=== PATIENT | female | born 1940 | race Caucasian/White ===

== ENCOUNTER → 2020-03-22 15:24 | Outpatient (BNVA) | payer MEDICARE, SELFPAY | PROVIDERS: Family Provider Family Medicine; PCP Family Medicine; Visit Provider Family Medicine | DX: Z13.6 Encounter for screening for cardiovascular disorders (principal); G57.93 Unspecified mononeuropathy of bilateral lower limbs | CPT/HCPCS: 80053; 80061; 82607; 84443; 85025 ==

== ENCOUNTER → 2020-06-13 14:44 | Outpatient (BNVA) | payer MEDICARE, SELFPAY | PROVIDERS: Family Provider Family Medicine; PCP Family Medicine; Visit Provider Family Medicine | DX: R10.2 Pelvic and perineal pain (principal) | CPT/HCPCS: 81000 ==

== ENCOUNTER 2025-06-22 13:41 | Observation (INO) | payer MEDICARE, SELFPAY ==
[2025-06-22] VITALS (7 sets, daily range): BP systolic 103–153; BP diastolic 61–102; PULSE 73–83; RESP 14–18; TEMP 37; O2SAT 96–100; BMI 18.2
--- NOTE | 2025-06-22 13:50 | XR_ITS ---
WS: [id number] Right hand, 3 views, 06/22/2025 Clinical Data: Pain and swelling Comparison: None. Findings: No fractures or dislocations are seen. The soft tissues are unremarkable. There is diffuse demineralization of the bones of the right hand. There is osteoarthritis at the base of the right first CMC joint. There is cystic change at the radial styloid. There is osteoarthritis between the sca phoid and the adjacent carpal bones. XR/XR hand RT min 3V* [id number] Impression: 1. 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 2. 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
--- OUTSIDE RECORDS SUMMARY | 2025-06-22 14:03 | XMS_ITS | Clinical Summary ---
Author Organization [place] Address [address] [place]: [place] [address] Care Team Providers Care Flight Security Specialist Name Role Phone OlimpiaJayden ortiz Primary Care Provider [phone] Allergies No known active allergies Medications alendronate (FOSAMAX) 70 mg tabletIndications :Age-related osteoporosis without current pathological fracture Take 1 Tablet (70 mg) by mouth every 7 days. empty stomach before other meds,with 8oz of water, stay upright 30 min 13 Tablet 3 5 Active diclofenac sodium EC (VOLTAREN) 50 mg Tablet, Delayed Release (E.C.)Indications :Bilateral leg pain Take 1 Tablet (50 mg) by mouth 2 times daily. 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 Right arm weakness 10/26/2008 Encounters Date Type Department Care Team Description 06/14/2025 External Device Data ST[facility] ABSTRACTION Provider, Abstract 05/31/2025 External Device Data [facility] ABSTRACTION Provider, Abstract 05/18/2025 External Device Data [facility] ABSTRACTION Provider, Abstract 05/12/[address] [address] Jayden Vaz DO switch rx; not taking pain away; New Prescription Request 04/27/2025 External Device Data [facility] ABSTRACTION Provider, Abstract 04/27/2025 External Device Data [facility] ABSTRACTION Provider, Abstract 04/27/2025 External Device Data [facility] ABSTRACTION Provider, Abstract 04/26/2025 External Device Data [facility] ABSTRACTION Provider, Abstract 04/06/2025 Results Follow-Up [address] [address] Jayden Vaz DO XR DEXA BONE DENSITY AXIAL 1 OR MORE SITES 04/04/2025 1:35 PM CDT - 04/04/2025 11:59 PM CDT Hospital Encounter [facility] [address] [place] [phone] Jayden Vaz DO Discharge Disposition: Home or Self Care 03/30/2025 External Device Data STL ABSTRACTION Provider, Abstract 03/29/2025 External Device Data [facility] ABSTRACTION Provider, Abstract 03/25/2025 3:20 PM CDT Office Visit [address] [phone] Jayden Vaz DO Encounter for routine adult health examination without abnormal findings (Primary Dx); Inflamed sebaceous cyst; Visit for suture removal; Numbness and tingling of both feet; Bilateral leg pain; Postmenopause; Dyslipidemia; Age-related osteoporosis without current pathological fracture; Protein-calorie malnutrition, mild; Abnormal weight loss 03/24/[address] [address] Jayden Vaz DO Wants Appointment from Last 3 Months Family History Medical History Relation Name Comments COPD Father Caesar Arriaza Melanoma Father Caesar Coronais Skin Cancer Mother Caridad Arriaza Relation Name Status Comments Father Caesar Arriaza Alive Mother Caridad Arriaza Alive Social History Tobacco Use Types Packs/Day Years Used Date Smoking Tobacco: Never Smokeless Tobacco: Never Tobacco Cessation:Counseling Given: Not Answered Alcohol Use Standard Drinks/Week Comments No 0 (1 standard drink = 0.6 oz pur e alcohol) Feeling Safe Answer Date Recorded Are you in a relationship wi th someone who hurts you emotionally and/or physically? No 12/16/2023 Comments No Sex and Gender Information Value Date Recorded Sex Assigned at Not on file Legal Sex Female 5:10 AM CAN DOFFER Gender Identity Not on file Sexual Orientation Not on file Last Filed Vital Signs Vital Sign Reading Time Taken Comments Blood Pressure 134/80 03/25/2025 4:02 PM CDT Pulse 78 03/25/2025 4:02 PM CDT Temperature 36.2 C (97.1 F) 03/25/2025 4:02 PM CDT Respiratory Rate 18 03/25/2025 4:02 PM CDT Oxygen Saturation 99% 03/25/2025 4:02 PM CDT Room Air Inhaled Oxygen Concentration - - Weight 54.8 kg (120 lb 12.8 oz) 03/25/2025 4:02 PM CDT Height 172.7 cm (5' 8 ) 03/25/2025 4:02 PM CDT Body Mass Index 18.37 03/25/2025 4:02 PM CDT Plan of Treatment Upcoming Encounters Date Type Department Care Team (Late st Contact Info) Description 09/28/2025 3:20 PM CAN DOFFER Office Visit [facility] [address] [address] Jayden Vaz DO [address] [phone] Health Maintenance Due Date Last Done Comments DTAP/TDAP/TD VACCINES (1 - Tdap) 1961 PNEUMOCOCCAL VACCINE 50+ YEA RS (1 of 1 - PCV) 02/18/1992 ZOSTER VACCINE (1 of 2) 02/18/1992 RSV VACCINE (60+ or ) (1 - 1-dose 75+ series) 2017 Medicare [place] Prev entative Visit/Annual Wellness Visit 10/13/2024 INFLUENZA VACCINE (#1) 2025 , 12/11/2023, 08/20/2022 OSTEOPOROSIS SCREENING 04/04/2030 04/04/2025 Medical Devices Implanted Type Area Fish Net Stringer Device Identifier Shelf Expiration Date Model / Serial / Lot Log [id number] - Tissue Substitutes & Biologicals - 1 - Vitoss Foam Ba 5ml Implanted:Qty: 1 on 06/30/2009 Biological N/A: Neck ORTHOVITA 12/11/2010 [id number] / / [id number] Verte-Stack Anatomic Peek Implanted:Qty: 3 on 06/30/2009 Cage N/A: Neck [employer] 04/11/2016 [id number] / / PD22 Log [id number] - Clay Trinica Cervical Plating System - 1 - Plate Trinica Select 60mm [id number] Implanted:Qty: 1 on 06/30/2009 Plate N/A: Neck [employer]LAY [employer] 07.23263.00 4 / LOAD # [id number] / Log [id number] - Clay Trinica Cervical Plating System - 1 - Screw Beba Ang Self Drill 4.2x14mm [id number] Implanted:Qty: 6 on 06/30/2009 Screw N/A: Neck zzzzZIMMER-SPIN E 07.88096.00 5 / LOAD # [id number] / Variable Screw Implanted:Qty: 2 on 06/30/2009 Screw N/A: Neck zzzzZIMMER-SPIN E 07.49643.00 2 / / LOAD # [id number] Procedures Procedure Name Priority Date/Time Associated Diagnosis Comments XR DEXA BONE DENSITY AXIAL 1 OR MORE SITES Routine 04/04/2025 2:00 PM CDT Postmenopause [place] REMOVAL OF SUTURES Routine 03/25/2025 3:20 PM CDT Inflamed sebaceous cyst Visit for suture removal from Last 3 Months Results * (ABNORMAL) XR DEXA BONE DENSITY AXIAL 1 OR MORE SITES (04/04/2025 2:00 PM CDT) T-SCORE HIP (LEFT) -4.20(A) -1.0 - 1.0 INTERFACE SYSTEM T-SCORE SPINE -3.10(A) -1.0 - 1.0 INTER FACE SYSTEM Anatomical Region Laterality Modality Digital Radiogra phy, Mammography 04/04/2025 2:01 PM CDT Impressions 04/05/2025 4:19 PM CDT IMPRESSION: 1. Findings consistent with osteoporosis; there is currently high risk for fracture with site of lowest density at the total hip. 2. Age matched Z-score of greater than -2.0 is within expected range for age and does not indicate accelerated bone demineralization. Definitions: T-score > -0.99 = Normal T-score -1.00 to -2.49 = Osteopenia T-score < -2.50 = Osteoporosis Z-score >-2.0 = Normal Z-score <-2.0 = Low bone density for chronologic age RECOMMENDATIONS: Follow up 1 year after starting or changing therapy recommended. NOF guidelines recommend consideration of FDA-approved medical therapies in patients with FRAX determined 10-year probabilities of hip/major osteoporosis-related fractures equal or greater than 3%/20% respectively. Consider assessing fracture risk using the FRAX analysis tool for guidance of clinical management available online at www.shef.ac.uk/FRAX/. Enter Omniture for Select DXA and the Femoral Neck BMD value. Narrative 04/05/2025 4:19 PM CDT Exam: XR DEXA BONE DENSITY AXIAL 1 OR MORE SITES Reason For Exam: See Diagnosis, osteoporosis screening. Diagnosis: Postmenopause Findings: The following absorptiometry data were obtained. The quality of this examination is acceptable with regards to count density, processed images, data display and lack of important artifacts (including but not limited to motion and attenuation artifacts). COMPARISON: None L1-L4 BMD (g/cm2): 0.701 Adult T-score: -3.1 Adult Z-score: Normal Left Femoral Neck BMD (g/cm2): 0.436 Adult T-score: -3.7 Adult Z-score: Normal Left Total Femur BMD (g/cm2): 0.433 Adult T-score: -4.2 Adult Z-score: Normal (PLEASE NOTE: IF BILATERAL FEMUR EVALUATION WAS PERFORMED, ONLY THE SIDE WITH LOWEST T-SCORE IS REPORTED) Procedure Note Ravi Barrientos MD - 04/05/2025 Exam: XR DEXA BONE DENSITY AXIAL 1 OR MORE SITES Reason For Exam: See Diagnosis, osteoporosis screening. Diagnosis: Postmenopause Findings: The following absorptiometry data were obtained. The quality of this examination is acceptable with regards to count density, processed images, data display and lack of important artifacts (including but not limited to motion and attenuation artifacts). COMPARISON: None L1-L4 BMD (g/cm2): 0.701 Adult T-score: -3.1 Adult Z-score: Normal Left Femoral Neck BMD (g/cm2): 0.436 Adult T-score: -3.7 Adult Z-score: Normal Left Total Femur BMD (g/cm2): 0.433 Adult T-score: -4.2 Adult Z-score: Normal (PLEASE NOTE: IF BILATERAL FEMUR EVALUATION WAS PERFORMED, ONLY THE SIDE WITH LOWEST T-SCORE IS REPORTED) IMPRESSION: 1. Findings consistent with osteoporosis; there is currently high risk for fracture with site of lowest density at the total hip. 2. Age matched Z-score of greater than -2.0 is within expected range for age and does not indicate accelerated bone demineralization. Definitions: T-score > -0.99 = Normal T-score -1.00 to -2.49 = Osteopenia T-score < -2.50 = Osteoporosis Z-score >-2.0 = Normal Z-score <-2.0 = Low bone density for chronologic age RECOMMENDATIONS: Follow up 1 year after starting or changing therapy recommended. NOF guidelines recommend consideration of FDA-approved medical therapies in patients with FRAX determined 10-year probabilities of hip/major osteoporosis-related fractures equal or greater than 3%/20% respectively. Consider assessing fracture risk using the FRAX analysis tool for guidance of clinical management available online at www.shef.ac.uk/FRAX/. Enter Omniture for Select DXA and the Femoral Neck BMD value. us Jayden Barbe DO DIAGNOSTIC IMAGING ORDERABLES Final Result * [place] REMOVAL OF SUTURES (03/25/2025 3:20 PM CDT) Narrative [facility] - 03/25/2025 3:20 PM CDT Jayden Vaz DO 03/25/2025 5:11 PM Suture Removal Date/Time: 03/25/2025 3:20 PM Performed by: Jayden Vaz DO Authorized by: Jayden Vaz DO Body area: trunk Location details: back Wound Appearance: clean Sutures Removed: 5 Post-removal: dressing applied Facility: sutures placed in this facility Patient tolerance: patient tolerated the procedure well with no immediate complications Jayden Vaz DO PROCEDURE/MINOR SURGICAL ORDE RABLES Final Result Performing Organization Address City/State/[facility] Co de Phone Number [facility] CLIA# [id number] [address] [address] from Last 3 Months Insurance [facility] Care Teams Flight Security Specialist Relationship Specialty Start Date End Date Jayden Vaz DO [address] [address] PCP - General Family Practice 06/21/22
--- OUTSIDE RECORDS SUMMARY | 2025-06-22 14:03 | XMS_ITS | Encounter Summary ---
Author Organization [facility] Address [address] [place] [address] Care Team Providers Care Various Exceptionalities Teacher Name Role Phone Jayden Vaz DO Primary Care Provider Encounter Details Date Type Department Care Team (Late Contact Info) Description 06/14/2025 External Device Data [facility] ABSTRACTION Provider, Abstract NO ADDRESS ON FILE Social History Tobacco Use Types Packs/Day Years Used Date Smoking Tobacco: Never Smokeless Tobacco: Never Alcohol Use Standard Drinks/Week Comments No 0 (1 standard drink = 0.6 oz pur e alcohol) Feeling Safe Answer Date Recorded Are you in a relationship wi th someone who hurts you emotionally and/or physically? No 12/16/2023 Comments No Sex and Gender Information Value Date Recorded Sex Assigned at Not on file Legal Sex Female 5:10 AM SENIOR SOFTWARE ANALYST Gender Identity Not on file Sexual Orientation Not on file documented as of this encounter Plan of Treatment Upcoming Encounters Date Type Department Care Team (Late Contact Info) Description 09/28/2025 3:20 PM SENIOR SOFTWARE ANALYST Office Visit [facility] [address] [place] [phone] Jayden Vaz DO [address] [place] [phone] documented as of this encounter Visit Diagnoses Not on filedocumented in this encounter Care Teams Various Exceptionalities Teacher Relationship Specialty Start Date End Date Jayden Vaz DO [address] [place] [phone] PCP - General Family Practice 06/21/22 documented as of this encounter
--- OUTSIDE RECORDS SUMMARY | 2025-06-22 14:03 | XMS_ITS | Encounter Summary ---
Author Organization [facility] Address [address] [place] [address] Care Team Providers Care Claims Counsel Name Role Phone Jenn Olsen MD Primary Care Provider [phone]- [phone] Encounter Details Date Type Department Care Team (Latest Contact Info) Description 03/13/2007 [facility] Medicine[address] [address] Sprain Lumbar Region (Primary Dx); Dysuria; Unspecified Myalgia and Myositis; Urinary Tract Infection, Site not Specified Social History Tobacco Use Types Packs/Day Years Used Date Smoking Tobacco: Never Assessed Comments Unknown Sex and Gender Information Value Date Recorded Sex Assigned at Not on file Legal Sex Female 2:55 AM FINANCIAL SYSTEMS MANAGER Gender Identity Not on file Sexual Orientation Not on file documented as of this encounter Plan of Treatment Not on file documented as of this encounter Visit Diagnoses Diagnosis Sprain lumbar region- Primary Sprain of lumbar region Dysuria Myalgia and myositis, unspecified Mylagia and myositis, unspecified Urinary tract infection, site not specified documented in this encounter Care Teams Claims Counsel Relationship Specialty Start Date End Date Jenn Olsen MD PCP - General Family Practice 07/06/10 03/18/14 documented as of this encounter
--- OUTSIDE RECORDS SUMMARY | 2025-06-22 14:03 | XMS_ITS | Encounter Summary ---
Author Organization [facility] Address [address] [place] [address] Care Team Providers Care Dust Mill Operator Name Role Phone Jenn Olsen MD Primary Care Provider [phone]- [phone] Encounter Details Date Type Department Care Team (Latest Contact Info) Description 07/27/2007 Outpatient Historical [facility] Medicine[address] [address] Abrasion Head (Primary Dx) Social History Tobacco Use Types Packs/Day Years Used Date Smoking Tobacco: Never Assessed Comments Unknown Sex and Gender Information Value Date Recorded Sex Assigned at Not on file Legal Sex Female 2:55 AM CHIEF RISK OFFICER Gender Identity Not on file Sexual Orientation Not on file documented as of this encounter Plan of Treatment Not on file documented as of this encounter Visit Diagnoses Diagnosis Face, neck, and scalp, except eye, abrasion or friction burn, without mention of infection- Primary documented in this encounter Care Teams Dust Mill Operator Relationship Specialty Start Date End Date Jenn Olsen MD PCP - General Family Practice 07/06/10 03/18/14 documented as of this encounter
--- OUTSIDE RECORDS SUMMARY | 2025-06-22 14:03 | XMS_ITS | Clinical Summary ---
Author Organization [facility] Address [address] [place] [address] Care Team Providers Care Stock Clerk Name Role Phone Unavailable Primary Care Provider Unavailabl e Allergies No known active allergies Medications No known medications Active Problems Problem Noted Date Diagnosed Date Right arm weakness 10/26/2008 Social History Tobacco Use Types Packs/Day Years Used Date Smoking Tobacco: Never Alcohol Use Standard Drinks/Week Comments No 0 (1 standard drink = 0.6 oz pur e alcohol) Comments No Sex and Gender Information Value Date Recorded Sex Assigned at Not on file Legal Sex Female 2:55 AM LOG CHIPPER OPERATOR Gender Identity Not on file Sexual Orientation Not on file Last Filed Vital Signs Vital Sign Reading Time Taken Comments Blood Pressure 120/84 07/06/2010 11:27 AM CDT Pulse 66 08/18/2009 9:17 AM LOG CHIPPER OPERATOR Temperature 36.4 C (97.5 F) 07/06/2010 11:27 AM CDT Respiratory Rate 12 08/18/2009 9:17 AM LOG CHIPPER OPERATOR Oxygen Saturation 96% 08/18/2009 9:17 AM LOG CHIPPER OPERATOR Inhaled Oxygen Concentration - - Weight 59 kg (130 lb) 07/06/2010 11:27 AM CDT Height 167.6 cm (5' 6 ) 08/18/2009 9:17 AM LOG CHIPPER OPERATOR Body Mass Index 20.98 08/18/2009 9:17 AM LOG CHIPPER OPERATOR Plan of Treatment Health Maintenance Due Date Last Done Comments DTAP/TDAP/TD VACCINES (1 - Tdap) 1961 PNEUMOCOCCAL VACCINE 50+ YEARS (1 of 1 - PCV) 02/17/19 92 ZOSTER VACCINE (1 of 2) 02/18/1992 OSTEOPOROSIS SCREENING 2007 RSV VACCINE (60+ or ) (1 - 1-dose 75+ series) 2017 INFLUENZA VACCINE (#1) 2025 Medical Devices Implanted Type Area Cashier Tube Room Device Identifier Shelf Expiration Date Model / Serial / Lot Log [id number] - Tissue Substitutes & Biologicals - 1 - Vitoss Foam Ba 5ml [id number] Implanted:Qty: 1 on 06/30/2009 at [facility] Biological N/A: Neck ORTHOVITA 12/11/[id number] / / [id number] Verte-Stack Anatomic Peek Implanted:Qty: 3 on 06/30/2009 at [facility] Cage N/A: Neck [employer] 04/11/2016 [id number] / / PD22 Log [id number] - Orville Trinica Cervical Plating System - 1 - Plate Trinica Select 60mm [id number] Implanted:Qty: 1 on 06/30/2009 at [facility] Plate N/A: Neck [employer]VILLE [employer] 07.84723.00 4 / LOAD # [id number] / Log [id number] - Orville Trinica Cervical Plating System - 1 - Screw Beba Ang Self Drill 4.2x14mm [id number] Implanted:Qty: 6 on 06/30/2009 at [facility] Screw N/A: Neck zzzzZIMMER-SPIN E [id number] 5 / LOAD # [id number] / Variable Screw Implanted:Qty: 2 on 06/30/2009 at [facility] Screw N/A: Neck zzzzZIMMER-SPIN E 07.89808.00 2 / / LOAD # [id number] Insurance [employer] [facility] Advance Directives For more information, please contact: [phone] * Full Code (Latest Code Status on File) Date Activated Date Inactivated Comments 06/30/2009 1:26 PM 07/03/2009 2:12 PM * Full Code Date Activated Date Inactivated Comments 06/30/2009 6:56 AM 06/30/2009 1:26 PM * Full Code Date Activated Date Inactivated Comments 06/30/2009 5:35 AM 06/30/2009 6:56 AM
--- OUTSIDE RECORDS SUMMARY | 2025-06-22 14:03 | XMS_ITS | Encounter Summary ---
Author Organization [facility] Address [address] [place] [address] Care Team Providers Care Dope And Fabric Worker Name Role Phone Jenn Olsen MD Primary Care Provider [phone]- [phone] Encounter Details Date Type Department Care Team (Latest Contact Info) Description 07/18/1998 Outpatient Historical [facility] Medicine[address] [address] Thomas Vaz MD [address] [place] [address] Dermatophytosis of the body (Primary Dx) Social History Tobacco Use Types Packs/Day Years Used Date Smoking Tobacco: Never Assessed Comments Unknown Sex and Gender Information Value Date Recorded Sex Assigned at Not on file Legal Sex Female 2:55 AM AEROPHYSICIST Gender Identity Not on file Sexual Orientation Not on file documented as of this encounter Plan of Treatment Not on file documented as of this encounter Visit Diagnoses Diagnosis Dermatophytosis of the body- Primary documented in this encounter Care Teams Dope And Fabric Worker Relationship Specialty Start Date End Date Jenn Olsen MD PCP - General Family Practice 07/06/10 03/18/14 documented as of this encounter
--- OUTSIDE RECORDS SUMMARY | 2025-06-22 14:03 | XMS_ITS | Encounter Summary ---
Author Organization [facility] Address [address] [place] [address] Care Team Providers Care Precision Optics Technician Name Role Phone Jenn Olsen MD Primary Care Provider +1- [phone] Encounter Details Date Type Department Care Team (Latest Contact Info) Description 09/02/2006 Outpatient Historical [facility] Medicine- [address] [place] [phone] Brandon Glaser MD [address] [place] [address] Cellulitis and Abscess of Unspecified Site (Primary Dx); Other Postprocedural Status Social History Tobacco Use Types Packs/Day Years Used Date Smoking Tobacco: Never Assessed Comments Unknown Sex and Gender Information Value Date Recorded Sex Assigned at Not on file Legal Sex Female 2:55 AM IMMIGRATION ASSOCIATE Gender Identity Not on file Sexual Orientation Not on file documented as of this encounter Plan of Treatment Not on file documented as of this encounter Visit Diagnoses Diagnosis Cellulitis and abscess of unspecified site- Primary Other postprocedural status(V45.89) Other postprocedural status documented in this encounter Care Teams Precision Optics Technician Relationship Specialty Start Date End Date Jenn Olsen MD PCP - General Family Practice 07/06/10 03/18/14 documented as of this encounter
[2025-06-22 14:22] LABS: Hematocrit 38.6 % (36-47); Hemoglobin 12.80 g/dL (11.27-16.99); Mean Corpuscular HGB Conc 33.2 g/dL (30-55); Mean Corpuscular Hemoglobin 32.2 pg (27-33); Mean Corpuscular Volume 97.0 fl (85-98); Nucleated Red Blood Cells % 0 %; Platelet Count 166 10^3/cmm (157-399); Red Blood Count 3.98 10^6/uL (3.85-5.65); White Blood Count 14.81 10^3/uL (3.29-11.43)
[2025-06-22 14:41] LABS: Alanine Aminotransferase 16 U/L (0-33); Albumin Level 3.5 g/dL (3.5-5.2); Alkaline Phosphatase 141 U/L (35-105); Anion Gap 18.3 (5-19); Aspartate Amino Transferase 36 U/L (0-32); Blood Urea Nitrogen 21 mg/dL (8-23); Calcium 9.3 mg/dL (8.5-10.5); Carbon Dioxide 20 mmol/L (22-29); Chloride 94 mmol/L (98-107); Creatinine Clr Calc Pharmacy 36.7733; Globulin 3.5 g/dL (1.3-4.6); Glucose 135 mg/dL (65-115); Osmolality Calculated 271 mOsm/kg (285-295); Potassium 4.3 mmol/L (3.5-5.1); Sodium 128 mmol/L (136-145); Total Protein 7.0 g/dL (6.6-8.7)
--- NOTE | 2025-06-22 14:51 | CTR_ITS ---
PROCEDURE INFORMATION: Exam: CT Head Without Contrast Exam date and time: 06/22/2025 3:22 PM Age: 85 years old Clinical indication: Weakness, extremity; Bilateral; Additional info: Unable to walk leg weakness TECHNIQUE: Imaging protocol: Computed tomography of the head without contrast. Radiation optimization: All CT scans at this facility use at least one of these dose optimization techniques: automated exposure control; mA and/or kV adjustment per patient size (includes targeted exams where dose is matched to clinical indication); or iterative reconstruction. COMPARISON: No relevant prior studies available. RADIATION DOSE METRICS: Total DLP (mGy-cm): 1182.58 FINDINGS: Brain: Brain is developmentally normal. Minimal parenchymal volume loss is seen commensurate with age. No intracranial hemorrhage, mass lesion, ischemic change, or abnormal calcification is demonstrated. Cerebral ventricles: No ventriculomegaly. Paranasal sinuses: Visualized sinuses are unremarkable. No fluid levels. Mastoid air cells: Visualized mastoid air cells are well aerated. Orbital cavities: Orbits show prior cataract surgery but are otherwise unremarkable. Bones: There is no acute fracture, lytic, or blastic lesion. Calcification of the cruciform and alar ligaments is suggested at the craniocervical junction. No craniocervical stenosis is apparent. Soft tissues: Unremarkable. CT/CT head wo con* [id number] IMPRESSION: Age-related parenchymal volume loss without evidence of acute intracranial pathology.
--- NOTE | 2025-06-22 14:51 | CTR_ITS ---
PROCEDURE INFORMATION: Exam: CT Cervical Spine Without Contrast Exam date and time: 06/22/2025 3:22 PM Age: 85 years old Clinical indication: Weakness; Prior surgery; Surgery date: 6+ months; Surgery type: C-spine; Additional info: Legweakness, HX cervical stenosis TECHNIQUE: Imaging protocol: Computed tomography of the cervical spine without contrast. Radiation optimization: All CT scans at this facility use at least one of these dose optimization techniques: automated exposure control; mA and/or kV adjustment per patient size (includes targeted exams where dose is matched to clinical indication); or iterative reconstruction. COMPARISON: CT head wo con* [id number] 06/22/2025 3:22 PM RADIATION DOSE METRICS: Total DLP (mGy-cm): 148.6 FINDINGS: The spine is imaged from upper clivus through T4. Solid interbody fusion from C4 through C7 is demonstrated with a residual ventral stabilization plate. There is a proximally 3.5 mm of C3-C4 degenerative retrolisthesis and 4.1 mm of C7-T1 degenerative anterolisthesis. There is no acute fracture, lytic, or blastic lesion. Discogenic sclerosis bordering the C3-C4 level. Visible portions of the posterior fossa appear normal. There is no indication of prevertebral soft tissue swelling or mass lesion. Bilateral carotid bifurcation atheromatous calcifications are noted without significant stenosis. A coarse calcification is seen within the left thyroid. An anterior left, low-attenuation 10 mm thyroid nodule is evident. An 11 low-attenuation right thyroid nodule is also noted. Cervical soft tissue mass or lymphadenopathy is present. Craniocervical junction, C1-C2: There is narrowing of the dens C1 articulation with hypertrophic arthropathy along the superior margin of the arch of C1. Capsular hypertrophy with capsular calcification is also seen at the dens C1 articulation with calcification of the cruciform and possibly the alar ligaments. No craniocervical instability is suggested. Thecal sac diameter midline measures 18.8 mm in spite of the capsular hypertrophy. No craniocervical stenosis is evident. C2-C3: Mild disc space narrowing is present. There is a partially calcified central disc bulge or minor protrusion without visible cord or root compromise. Asymmetric left facet sclerosis is seen with subcortical cystic changes. There is no foraminal stenosis or visible nerve root impingement. C3-C4: Severe disc space narrowing is seen with mild discogenic sclerosis and hypertrophic endplate changes. A central disc osteophyte complex is seen, narrowing the thecal sac AP diameter to approximately 6.1 mm and likely resulting in cord impingement. Uncovertebral hypertrophy and endplate hypertrophy is seen causing both foramina root entry zone and foraminal stenosis with probable bilateral C4 root compromise. C4-C5 through C6-C7: Postop changes are seen without evidence of hardware failure or operative complication. Bilateral C6 and C7 bony foraminal stenosis is seen due to residual uncovertebral hypertrophy potentially causing bilateral C6 and C7 root impingement. Clinical correlation is needed. C7-T1: There is moderate to severe disc space narrowing with vacuum disc phenomenon. Severe facet arthropathy allows facet subluxation in the subsequent degenerative anterolisthesis. The bony neural foramina appear to be adequately patent. Midline thecal sac diameter measures 9.1 mm. No neural impingement is suspected. T1-2: A shallow partially calcified disc protrusion is evident without visible cord contact. Mild posterior element hypertrophy is also seen. The neural foramina are patent. No nerve root compromise is suspected. T2-3, T3-4: Normal with the exception of left T2-3 mild bony foraminal stenosis due to facet hypertrophy. No neural impingement is suspected. CT/CT cervical spin wo con* [id number] IMPRESSION: 1. Multilevel cervical spondylosis as detailed above with potentially significant central canal stenosis at C3-C4 where a disc osteophyte complex narrows the thecal sac to 6.1 mm and likely results in some cord compromise. 2. Additional neural impingement with hypertrophic endplate changes uncovertebral spurring causing potential bilateral C4 root compromise, and bony foraminal stenosis potentially affecting the bilateral C6 and C7 nerve roots. 3. Solid interbody fusion from C4 through C7 4. Facet arthropathy resulting in 4.1 mm of degenerative anterolisthesis at C7-T1. Lateral flexion and extension views could be obtained to assess for instability at this level if clinically indicated. 5. 10 mm left and 11 mm right thyroid low-attenuation nodules. No follow-up is recommended. COMMENTS: Consistent with the [employer]'s Incidental Findings Committee white paper (J Am Jamie Radiol 2015): In patients aged 35 years and older with an incidental thyroid nodule equal to or greater than 1.[address], MRI or extrathyroidal US, further evaluation with dedicated thyroid US is recommended for patients with normal life expectancy and without comorbidities. For smaller nodules without suspicious features, no further evaluation or follow up is recommended.
--- NOTE | 2025-06-22 14:51 | CTR_ITS ---
PROCEDURE INFORMATION: Exam: CT Lumbar Spine Without Contrast Exam date and time: 06/22/2025 3:28 PM Age: 85 years old Clinical indication: Weakness; Additional info: Leg weakness. C/O bilateral leg pain and weakness for several days. PT states that she has been forcing herself to get up with her walker when needed. PT reports redness and swelling to the right hand for the last couple of days as well. TECHNIQUE: Imaging protocol: Computed tomography of the lumbar spine without contrast. Radiation optimization: All CT scans at this facility use at least one of these dose optimization techniques: automated exposure control; mA and/or kV adjustment per patient size (includes targeted exams where dose is matched to clinical indication); or iterative reconstruction. COMPARISON: No relevant prior studies available. RADIATION DOSE METRICS: Total DLP (mGy-cm): 302.41 FINDINGS: Bones/joints: Multilevel degenerative disc disease. Grade 1 anterolisthesis of L4 over L5. L1-L2: Disc bulge. No spinal canal stenosis. Severe left neural foraminal narrowing. L2-L3: Disc bulge. Bilateral facet and ligamentum flavum hypertrophy. No spinal canal stenosis. Severe left and moderate right neural foraminal narrowing. L3-L4: Disc bulge. Bilateral facet and ligamentum flavum hypertrophy. Mild to moderate spinal canal stenosis. Severe bilateral neural foraminal narrowing. L4-L5: Disc bulge. Bilateral facet and ligamentum flavum hypertrophy. Moderate spinal canal stenosis. Severe bilateral neural foraminal narrowing. L5-S1: Disc bulge. Bilateral facet and ligamentum flavum hypertrophy. Moderate spinal canal stenosis. Severe bilateral neural foraminal narrowing. Soft tissues: Unremarkable. Other findings: Motion artifact degrades the images. CT/CT lumbar spine wo con* [id number] IMPRESSION: No acute lumbar spine fracture. Multilevel degenerative disc disease with neural foraminal narrowing. Severe left neural foraminal narrowing at L1-L2, severe left and moderate right L2-L3, severe bilateral L3-L4, L4-L5 and L5-S1. Mild to moderate spinal canal stenosis at L3-L4, moderate at L4-L5 and L5-S1.
--- NOTE | 2025-06-22 15:51 | W.ED.WEAKNES ---
HPI - Weakness General: Chief complaint: Weakness Stated complaint: Can't walk painfull to stand R hand was swollen Time Seen by Provider: 06/22/25 14:22 History of Present Illness: 85-year-old female presents emergency room complaining of history of spinal stenosis. She states she cannot walk some progressive weakness for the last couple of days. She has been told she has supple spinal and lumbar stenosis. She has not had any fecal incontinence or urinary retention. No falls or injury. She also has pain radiating to her right hand. No trauma to the right hand denies chest pain or shortness of breath Associated symptoms: Denies chest pain, chills, dysuria or fever(s) Related Data Home Medications ?Medication ?Instructions ?Recorded ?Confirmed acetaminophen 500 mg tablet 500 mg PO Q6H PRN Pain 06/22/25 06/22/25 alendronate 70 mg tablet 70 mg PO Q7D 06/22/25 06/22/25 etodolac 400 mg tablet 400 mg PO BID 06/22/25 06/22/25 Previous Rx's ?Medication ?Instructions ?Recorded insulin syringe,safety needle 1 mL #12 ea 04/21/20 29 gauge x 1/2 Allergies Allergy/AdvReac Type Severity Reaction Status Date / Time No Known Allergies Allergy Verified 06/22/25 13:56 Review of Systems Const: Denies: fever(s) or chills Card: Denies: chest pain Resp: Denies: dyspnea GI: Denies: abdominal pain : Denies: dysuria, urinary frequency or urinary urgency Musc: Denies: neck pain or back pain Skin/Breast: Denies: rash PFSH ED PFSH: Surgical History History of neck surgery History of facelift Social History Smoking and tobacco/nicotine status: never used tobacco/nicotine Alcohol intake: never Substance/Drug Use: never Physical Exam Const: GENERAL APPEARANCE: cooperative ORIENTATION/CONSCIOUSNESS: Yes awake, Yes oriented to person, Yes oriented to place and Yes oriented to time HENMT: COMMON NORMALS: normocephalic, atraumatic and hearing grossly normal bilaterally HEAD & SCALP: normocephalic and atraumatic Resp: COMMON NORMALS: normal respiratory effort, No retractions, No use of accessory muscles and clear to auscultation bilaterally AUSCULTATION: clear to auscultation bilaterally Cardio: COMMON NORMALS: regular rate, regular rhythm and No murmurs present (Cardio) RATE: regular rate RHYTHM: regular rhythm GI: COMMON NORMALS: Soft to palpation and No hepatosplenomegaly present AUSCULTATION: Yes normoactive bowel sounds PALPATION: Yes Soft to palpation, No Tenderness to palpation present (GI), No Guarding due to palpation present (GI) and Yes No hepatosplenomegaly present Extremity: COMMON NORMALS: normal to inspection, capillary refill normal, no clubbing, cyanosis or edema, no calf tenderness and no pedal edema OTHER: Extreme weakness in lower extremities difficult time raising leg up off the bed bilaterally decreased sensation lower extremities particularly in the right lower leg. Upgoing Babinski on the left. Nonresponsive to Babinski testing on the right. Decreased strength in the right arm compared to the left sensation in the upper extremities normal. Vascularly intact in both upper and lower extremities Neuro: SENSORIUM/ORIENTATION: Yes oriented to person, Yes oriented to place and Yes oriented to time Skin: COMMON NORMALS: no rashes or lesions noted GENERAL SKIN EXAM: no rashes or lesions noted Course Vital Signs: Vital signs: Vital Signs Temperature 98.6 F 06/22/25 13:49 Pulse Rate 76 06/23/25 06:30 Respiratory Rate 14 06/23/25 03:01 Blood Pressure 129/76 06/23/25 06:30 Pulse Oximetry 97 06/23/25 06:30 Oxygen Delivery Me thod Room Air 06/23/25 06:00 MDM - Weakness Medical Decision Making Patient has significant cervical and lumbar stenosis concerned about her cervical stenosis appears critical and given her symptoms of progressive loss of function of her lower extremities over short period of time she will need an MRI and neurosurgical consultation. Dr. Plascencia is not on-call today and MRI is not available at this hour. Will transfer. Patient is arranged for transfer to [facility] in [place] however we have not yet received a bed assignment. When I came back on shift patient is still here I contacted Dr. Plascencia who is now available and willing to see the patient. MRI is also now available. Discussed with hospitalist. Will place on observation MRI of the cervical and lumbar spine and consult with Dr. Plascencia. Discussed Dr. tripp and he will see the patient on the floor. Medical Records I reviewed the patient's medical records. Lab Data I reviewed the patient's lab results. 06/22/25 14:17 06/22/25 14:17 Radiology Impressions Hand X-Ray 06/22/25 13:50 Impression: 1. 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 2. 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 Cervical Spine CT 06/22/25 14:51 IMPRESSION: 1. Multilevel cervical spondylosis as detailed above with potentially significant central canal stenosis at C3-C4 where a disc osteophyte complex narrows the thecal sac to 6.1 mm and likely results in some cord compromise. 2. Additional neural impingement with hypertrophic endplate changes uncovertebral spurring causing potential bilateral C4 root compromise, and bony foraminal stenosis potentially affecting the bilateral C6 and C7 nerve roots. 3. Solid interbody fusion from C4 through C7 4. Facet arthropathy resulting in 4.1 mm of degenerative anterolisthesis at C7-T1. Lateral flexion and extension views could be obtained to assess for instability at this level if clinically indicated. 5. 10 mm left and 11 mm right thyroid low-attenuation nodules. No follow-up is recommended. COMMENTS: Consistent with the [employer]'s Incidental Findings Committee white paper (J Am Jamie Radiol 2015): In patients aged 35 years and older with an incidental thyroid nodule equal to or greater than 1.[address], MRI or extrathyroidal US, further evaluation with dedicated thyroid US is recommended for patients with normal life expectancy and without comorbidities. For smaller nodules without suspicious features, no further evaluation or follow up is recommended. Head CT 06/22/25 14:51 IMPRESSION: Age-related parenchymal volume loss without evidence of acute intracranial pathology. Lumbar Spine CT 06/22/25 14:51 IMPRESSION: No acute lumbar spine fracture. Multilevel degenerative disc disease with neural foraminal narrowing. Severe left neural foraminal narrowing at L1-L2, severe left and moderate right L2-L3, severe bilateral L3-L4, L4-L5 and L5-S1. Mild to moderate spinal canal stenosis at L3-L4, moderate at L4-L5 and L5-S1. Laboratory Results WBC 14.81 10^3/uL (3.29-11.43) H 06/22/25 14:17 RBC 3.98 10^6/uL (3.85-5.65) 06/22/25 14:17 Hgb 12.80 g/dL (11.27-16.99) 06/22/25 14:17 Hct 38.6 % (36-47) 06/22/25 14:17 MCV 97.0 fl (85-98) 06/22/25 14:17 MCH 32.2 pg (27-33) 06/22/25 14:17 MCHC 33.2 g/dL (30-55) 06/22/25 14:17 RDW 12.6 % (12.1-15.1) 06/22/25 14:17 Plt Count 166 10^3/cmm (157-399) 06/22/25 14:17 MPV 9.7 fL (7.4-10.4) 06/22/25 14:17 Neut % (Auto) 86.2 % 06/22/25 14:17 Lymph % (Auto) 2.8 % 06/22/25 14:17 [place] % (Auto) 10.2 % 06/22/25 14:17 Eos % (Auto) 0.0 % 06/22/25 14:17 Baso % (Auto) 0.2 % 06/22/25 14:17 Neut # (Auto) 12.76 10^3/uL (1.8-7.7) H 06/22/25 14:17 Lymph # (Auto) 0.4 10^3/uL (0.8-4.8) L 06/22/25 14:17 [place] # (Auto) 1.5 10^3/uL (0.2-0.9) H 06/22/25 14:17 Eos # (Auto) 0.0 10^3/uL (0.0-0.8) 06/22/25 14:17 Baso # (Auto) 0.0 10^3/uL (0.0-0.1) 06/22/25 14:17 Nucleated RBC % (auto) 0 % 06/22/25 14:17 Nucleated RBCs # 0.0 /100WBC 06/22/25 14:17 Sodium 128 mmol/L (136-145) L 06/22/25 14:17 Potassium 4.3 mmol/L (3.5-5.1) 06/22/25 14:17 Chloride 94 mmol/L (98-107) L 06/22/25 14:17 Carbon Dioxide 20 mmol/L (22-29) L 06/22/25 14:17 Anion Gap 18.3 (5-19) 06/22/25 14:17 BUN 21 mg/dL (8-23) 06/22/25 14:17 Creatinine 1.1 mg/dL (0.5-0.9) H 06/22/25 14:17 GFR Calculation Not Reportable 06/22/25 14:17 Glucose 135 mg/dL (65-115) H 06/22/25 14:17 Calculated Osmolality 271 mOsm/kg (285-295) L 06/22/25 14:17 Calcium 9.3 mg/dL (8.5-10.5) 06/22/25 14:17 Total Bilirubin 1.4 mg/dL (0.15-1.2) H 06/22/25 14:17 AST 36 U/L (0-32) H 06/22/25 14:17 ALT 16 U/L (0-33) 06/22/25 14:17 Alkaline Phosphatase 141 U/L (35-105) H 06/22/25 14:17 Total Protein 7.0 g/dL (6.6-8.7) 06/22/25 14:17 Albumin 3.5 g/dL (3.5-5.2) 06/22/25 14:17 Globulin 3.5 g/dL (1.3-4.6) 06/22/25 14:17 All radiology interpretation(s) finalized by discharge Discharge Plan Discharge Patient Disposition: Placed in Observation Clinical Impression: Cervical spinal stenosis, Unable to walk Coding Level of Care Code 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
[2025-06-22] MEDS: HYDROmorphone 0.5 MG/0.5 ML INJ 1 MG IVP ×2 (19:23→23:36)
[2025-06-23] VITALS (32 sets, daily range): BP systolic 93–136; BP diastolic 56–84; PULSE 68–109; RESP 14–18; TEMP 36.8–37.2; O2SAT 93–99; BMI 18.6
[2025-06-23] MEDS: HYDROmorphone 0.5 MG/0.5 ML INJ 1 MG IVP (08:30)
--- NOTE | 2025-06-23 09:02 | P.HP_ITS ---
Providers/Chief Complaint 2 Primary Care Provider: Jayden Vaz DO Chief Complaint: Can't walk painfull to stand R hand was swollen History of Present Illness Maria Luz Weems is a 85 year old woman with a history of prior neck surgery presenting with several days of progressive weakness and difficulty getting up and walking. Reports bilateral leg pain described as painful in most of the legs, with pain shooting down the backs of both legs. States she cannot walk and has struggled to get up even with use of a walker for a couple of days prior to arrival. Also notes her arms feel weak. Denies urinary or fecal incontinence. Reports right hand swelling over the past couple of days that has resolved, with some persistent redness (erythema). Describes a recent acute illness just before the weakness began, characterized by feeling very sick with severe chills and abdominal discomfort; denies diarrhea and is unsure about fever. Denies chest pain, shortness of breath, orthopnea, or leg swelling. Reports long-standing numbness in the feet (states she has had neuropathy for a long time). Denies falls. Had an episode of feeling unwell and with some nausea for about a week prior to current symptoms. States she was exercising and walking prior to this episode without major issues. In the emergency department, she received pain medication that improved comfort. Lives with her niece, who assists her. Review of Systems 2 Const: Reports: fatigue and other (Weakness, more pronounced and suddenly wore in legs. BL arm weakness chroni); Denies: fever(s), chills, body aches or malaise ENMT: Denies: throat pain Card: Denies: chest pain, edema, pre-syncope or dyspnea on exertion Resp: Denies: dyspnea, productive cough, change in phlegm color or hemoptysis GI: Denies: abdominal pain, nausea, vomiting, diarrhea, constipation, hematochezia or melena : Denies: flank pain, urinary frequency or hematuria Musc: Denies: back pain, joint swelling or joint redness Skin/Breast: Reports: other (Recent transient R hand swelling, redness); Denies: rash or new lesions Neuro: Denies: headache(s) or confusion Medications/Allergies Home Medications ?Medication ?Instructions ?Recorded ?Confirmed ?Last Taken ?Type insulin syringe,safety needle 1 mL #12 ea 04/21/2008/06 Unknown Rx 29 gauge x 1/2 acetaminophen 500 mg tablet 500 mg PO Q6H PRN Pain 08/0606/22/25 06/22/25 History alendronate 70 mg tablet 70 mg PO Q7D 06/22/2506/13/25 History etodolac 400 mg tablet 400 mg PO BID 06/22/2506/22 Unknown History Allergies Allergy/AdvReac Type Severity Reaction Status Date / Time No Known Allergies Allergy Verified 06/22/25 13:56 PFSH Acute 2 PFSH: Surgical History History of neck surgery History of facelift Social History Smoking and tobacco/nicotine status: never used tobacco/nicotine Alcohol intake: never Substance/Drug Use: never Lives independently: No Household members: family Vitals/I&O/Wt Last Vital Signs Temp 98.6 F 06/22/25 13:49 Pulse 76 06/23/25 06:30 Resp 14 06/23/25 03:01 BP 129/76 06/23/25 06:30 Pulse Ox 97 06/23/25 06:30 O2 Del Method Room Air 06/23/25 06:00 Weight last 48 hrs Weight 54.431 kg Physical Exam 2 Const: COMMON NORMALS: patient oriented x3 and alert GENERAL APPEARANCE: c ooperative ORIENTATION/CONSCIOUSNESS: Yes awake HENMT: COMMON NORMALS: oropharynx normal Neck/C-Spine: COMMON NORMALS: no JVD Resp: COMMON NORMALS: normal respiratory effort and clear to auscultation bilaterally AUSCULTATION: clear to auscultation bilaterally Cardio: COMMON NORMALS: no JVD, regular rhythm, S1 normal heart sound present, S2 normal heart sound present and No murmurs present (Cardio) RHYTHM: regular rhythm HEART SOUNDS: S1 normal heart sound present and S2 normal heart sound present GI: COMMON NORMALS: Normal to inspection, nondistended, normoactive bowel sounds present, Soft to palpation and non-tender PALPATION: Yes Soft to palpation Extremity: COMMON NORMALS: no joint enlargement and no pedal edema N ARRATIVE EXTREMITY EXAM: Minimal induration without notable redness or swelling of right hand. Neuro: OTHER: Mild weakness of upper extremities. Moderate-severe weakness of lower extremities. Unable to lift left leg off the bed, slightly lifting the right leg off the bed. Sensation is intact. On able to elicit lower extremity reflexes. Skin: COMMON NORMALS: no rashes or lesions noted GENERAL SKIN EXAM: no rashes or lesions noted Data 06/22/25 14:17 06/22/25 14:17 A&P Assessment and plan 1. Unable to walk: Progressive weakness for several days affecting legs and arms; unable to walk. Denies bowel/bladder incontinence. Uses walker recently. Bedside exam shows bilateral leg weakness (R>L). Imaging reviewed in ED shows multilevel cervical spondylosis with potential significant central stenosis at C3?C4 and prior interbody fusion C4?C7; lumbar CT shows multilevel degenerative disease with severe neuroforaminal narrowing at multiple levels. Head CT shows age-related changes without acute intracranial pathology. Laboratory data notable for leukocytosis and hyponatremia, with elevated blood urea nitrogen. Reviewed vitals, CBC, CMP, head CT, C-spine CT, L-spine CT, ED provider note, discussed with ED provider, discussed with orthospine surgery and neurology. Appreciate consultation with regards to sudden onset progressive weakness over couple days after a week of illness with areflexia, consideration of AIDP on top of myelopathy. She does seem to have some chronic neuropathy as well. - Orthospine surgeon consulted; MRI requested to further evaluate spine. - Discussed potential that MRI results may inform surgical options; risks of anesthesia and recovery were discussed in the context of age and recent weakness. - Admit to medical surgical floor. Will obtain NIF assessment with RT. Monitor oxygenation. Neuroassessments. Monitor for risk of respiratory compromise in case of AIDP. - Check B12, magnesium. She is also cold intolerant. Check TSH. - PT, OT assessment 2. Cervical spinal cord compression: As above. With prior cervical surgery fusion C4-C7. Anterolisthesis. With noted spinal stenosis with likely thecal compromise. Further assessment with MRI is requested and pending orthospine surgery and neurology assessment. 3. Neuroforaminal stenosis of cervical spine: As above 4. Neuroforaminal stenosis of lumbar spine: As above 5. Hyponatremia: Unclear chronicity. Possibly chronic hyponatremia. She did have about a weeks worth of illness where she was feeling some nausea, possibly some hypovolemic hyponatremia. Will give gentle hydration with NS. Reassess sodium. Regular diet. Monitor for risk of overly rapid sodium rise. 6. Leukocytosis: Possibly after recent cellulitis of right hand. This appears to be mostly resolving although still with leukocytosis and some mild induration of the dorsal surface of the right hand. Will give cephalexin for now. Reassess. 7. Cholestasis: Obtain gallbladder ultrasound. Noted T. bili elevation up to 1.4, alk phos 141. 8. Multiple thyroid nodules: Incidentally noted on CT without recommended follow-up. Plan: Bilateral leg pain : Patient reports bilateral leg pain involving most of the legs, with shooting pain down the backs of the legs; received pain medication in ED with some comfort. With noted radiculopathy, radicular pain. Has been on NSAIDs with some partial response. Continue acetaminophen as needed. NSAIDs cautiously given possible MARTINE creatinine 1.1 versus CKD. IV morphine as needed for severe breakthrough pain. Right hand erythema with prior swelling : Right hand swelling over a couple of days (now resolved) with persistent erythema. 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 Appears to be possibly improving/resolving cellulitis. Will give cephalexin for now with leukocytosis. Reassess blood counts, right hand symptoms. Recent systemic illness with chills and abdominal discomfort (preceding weakness) : Patient reports an acute illness just prior to onset of weakness, with severe chills and abdominal discomfort (no diarrhea). History of prior cervical spine surgery : Neck surgery years ago; current CT cervical spine shows multilevel spondylosis with potential significant central stenosis at C3?C4, uncovertebral spurring with possible nerve root compromise, and solid interbody fusion from C4?C7. Former tobacco use : Quit smoking decades ago; no current tobacco use. Follow-up : Care coordination and monitoring steps discussed and/or initiated. - Obtain baseline electrocardiogram (EKG). - Obtain negative inspiratory force (NIF) with respiratory therapy. - Monitor oxygenation. - Plan to reach out to Neurology to evaluate for a possible additional process (e.g., Guillain-Parker? syndrome) given recent illness and weakness. - Goals of care/code status discussed; patient would not want CPR on consideration, and emphasized not wanting to live with severe paralysis; niece identified as contact finger assembler. PDMP PDMP Reviewed: Not Reviewed Attestations 2 Medical Necessity Statement*: Place in observation for additional assessment of possible myelopathy from spinal cord compression, possible AIDP in a lady with worsening weakness, inability to ambulate, hyponatremia, cholestasis. Diagnoses Unable to walk R26.2 Cervical spinal cord compression G95.20 Neuroforaminal stenosis of cervical spine M48.02 Neuroforaminal stenosis of lumbar spine M48.061 Hyponatremia E87.1 Leukocytosis D72.829 Cholestasis K83.1 Multiple thyroid nodules E04.2
--- NOTE | 2025-06-23 10:24 | MR_ITS ---
WS: [id number] MRI CERVICAL SPINE NONCONTRAST HISTORY: cervical stenosis - unable to walk COMPARISON: Cervical spine CT 06/22/2025 Technique: Multiplanar, multisequence noncontrast imaging of the cervical spine. Anterior cervical fusion extends from C4-C7. Fusion across the disc spaces appears intact. C7 anterolisthesis by 5 mm. Severe disc space narrowing at C3-4 with hypertrophic osteophytes extending into the foramina. Facet joints are all normally aligned. No acute fractures are identified. Very slight increased T2 signal in the anterior cervical cord at C6-7. No cord atrophy. Craniocervical junction, C1 and C2 relationship, odontoid process and soft tissues are normal. C2-C3: Central disc protrusion with osteophytic ridging. No significant stenosis. C3-C4: Marked osteophytic ridging with annular disc bulging and facet arthritis. Severe central and bilateral foraminal stenosis. C4-C5: Mild osteophytic ridging with facet joint arthritis. Mild foraminal stenosis. C5-C6: Osteophytic ridging with a RIGHT paracentral disc osteophyte complex effacing ventral CSF. Moderate to severe central and foraminal stenosis. C6-C7: Osteophytic ridging encroaching upon the LEFT paracentral thecal sac. Bilateral facet arthritis and moderate foraminal stenosis. C7-T1: Anterolisthesis of C7. Moderate to severe disc space narrowing with marked facet joint arthritis. Severe central stenosis. Moderate bilateral foraminal stenosis. T1-2: Annular disc bulging resulting in mild central and foraminal stenosis. Paravertebral soft tissues are otherwise unremarkable. Thyroid nodules were better seen on the prior CT. MR/MR cervical spin wo con* [id number] IMPRESSION: 1. Prior anterior cervical fusion with interbody spacers extending from C4-C7. Fusion appears intact without complications. 2. C7 anterolisthesis by 5 mm. 3. Severe degenerative disc space narrowing at C3-4 with osteophytosis. 4. C3-4: Severe central and bilateral foraminal stenosis predominately due to osteophytic ridging. 5. Moderate to severe central and foraminal stenosis at C5-6. 6. Moderate foraminal stenosis at C6-7 with a LEFT paracentral disc osteophyte . 7. C7-T1: Severe central and moderate bilateral foraminal stenosis. 8. Mild central and foraminal stenosis at T1-2. 9. Subtle signal changes in the anterior cervical cord at C6-7 may represent e mariah myelomalacia.
--- NOTE | 2025-06-23 10:24 | MR_ITS ---
WS: [id number] MRI LUMBAR SPINE NONCONTRAST HISTORY: lumbar stenosis - back pain unable to walk COMPARISON: CT lumbar spine 06/22/2025 TECHNIQUE: Sagittal and axial multisequence imaging is submitted. This examination is significantly compromised by motion artifact. Increasing thoracic kyphosis. S-shaped curvature thoracolumbar spine. There is a small amount of marrow edema in the endplates of L1, L2 and L3. No acute compression fracture is identified. L4 anterolisthesis 5.5 mm. Disc bases are slightly narrowed and desiccated. Conus terminates normally at L1-2 disc level. L1-L2: Diffuse disc bulging with a central disc protrusion. Moderate ligamentum flavum and facet arthritis. There is a least moderate central, subarticular recess and foraminal stenosis. L2-L3: Diffuse annular disc bulging, osteophytic ridging with ligamentum flavum and facet arthritis. Severe central, bilateral subarticular recess and foraminal stenosis, LEFT greater than RIGHT. L3-L4: Diffuse disc bulging with facet disease. Severe central, bilateral subarticular recess and foraminal stenosis. L4-L5: Unroofing of the disc due to anterolisthesis of L4. Severe central, subarticular recess and RIGHT foraminal stenosis. There is a disc protrusion likely in the RIGHT foramen. Complete effacement of fat. Moderate LEFT foraminal stenosis. L5-S1: Diffuse disc bulging with ligamentum flavum and facet arthritis. Severe central, bilateral subarticular recess and moderate foraminal stenosis. No paravertebral abnormality identified. MR/MR lumbar spine wo con* [id number] IMPRESSION: 1. Examination is compromised by motion artifact. 2. Multilevels of severe central, foraminal and subarticular recess stenosis i dentified. 3. Severe central, bilateral subarticular recess and foraminal stenosis at L2- 3 and L3-4. 4. Severe central, subarticular recess and RIGHT foraminal stenosis at L4-5. M oderate LEFT foraminal stenosis. 5. L5-S1: Severe central, bilateral subarticular recess and moderate foraminal stenosis. 6. L4 anterolisthesis by 5.5 mm. 7. Moderate central, subarticular recess and foraminal stenosis at L1-2. 8. No definite acute fractures are identified. There is marrow edema along the endplates of L1, L2 and L3. This may be reactive.
[2025-06-23] MEDS: morphine 4 mg/mL SDV 1 mL IVP ×2 (10:36→15:32)
--- NOTE | 2025-06-23 13:45 | US_ITS ---
WS: [id number] RIGHT UPPER QUADRANT ULTRASOUND HISTORY: Elevated T. bili, alk phos COMPARISON: None available. Liver: 14.7 cm in length. Normal size liver and echogenicity. No bile duct dilatation or mass. Portal Vein: Normal hepatopetal flow with monophasic waveform. Gallbladder: Normally distended gallbladder with no stones or wall thickening. CBD: 1.0 cm Pancreas: Normal size and echogenicity. Right kidney: 9.4 cm in length. Normal size and echogenicity. No hydronephrosis or mass. Aorta and IVC: Unremarkable abdominal aorta and IVC. No ascites. US/US gall bladder [id number] IMPRESSION: Normal right upper quadrant ultrasound.
[2025-06-23 14:50] LABS: Sodium 134 mmol/L (136-145)
[2025-06-23 15:00] LABS: Magnesium 2.3 mg/dL (1.7-2.3); Thyroid Stimulating Hormone 0.80 uIU/mL (0.27-4.20)
--- NOTE | 2025-06-23 16:11 | PC.OT ---
OT EVALUATION ATTEMPTED. PATIENT RECENTLY HAD MORPHINE AND BP IS LOW. ALSO, AWAITING NEUROSURGERY SPINE CONSULT
[2025-06-23 16:43] LABS: Vitamin B12 > 2000 pg/mL (232-1245)
--- NOTE | 2025-06-23 17:19 | PM.CONSULT ---
Providers/Reason For Consult Consulting Physician/Specialty*: Hospitalist Reason for Consult*: Inability to walk Attending Physician: Tad Bailey Primary Care Provider: Jayden Vaz DO History of Present Illness History of Present Illness Maria Luz Weems is a 85 year old female with a history of prior neck surgery presenting with several days of progressive weakness and difficulty getting up and walking. Reports bilateral leg pain described as painful in most of the legs, with pain shooting down the backs of both legs. States she cannot walk and has struggled to get up even with use of a walker for a couple of days prior to arrival. Also notes her arms feel weak. Patient says this came on suddenly. She has had numbness in her legs though for a long time she stated. She is also has weakness in her right arm. Review of Systems Const: Reports: fatigue and other (Weakness, more pronounced and suddenly wore in legs. BL arm weakness chroni); Denies: fever(s), chills, body aches or malaise ENMT: Denies: throat pain Card: Denies: chest pain, edema, pre-syncope or dyspnea on exertion Resp: Denies: dyspnea, productive cough, change in phlegm color or hemoptysis GI: Denies: abdominal pain, nausea, vomiting, diarrhea, constipation, hematochezia or melena : Denies: flank pain, urinary frequency or hematuria Musc: Denies: back pain, joint swelling or joint redness Skin/Breast: Reports: other (Recent transient R hand swelling, redness); Denies: rash or new lesions Neuro: Denies: headache(s) or confusion Medications/Allergies Home Medications ?Medication ?Instructions ?Recorded ?Confirmed ?Last Taken ?Type insulin syringe,safety needle 1 mL #12 ea 04/21/20 06/22/25 Unknown Rx 29 gauge x 1/2 acetaminophen 500 mg tablet 500 mg PO Q6H PRN Pain 06/22/25 06/22/25 06/22/25 History alendronate 70 mg tablet 70 mg PO Q7D 06/22/25 06/22/25 06/13/25 History etodolac 400 mg tablet 400 mg PO BID 06/22/25 06/22/25 Unknown History Allergies Allergy/AdvReac Type Severity Reaction Status Date / Time No Known Allergies Allergy Verified 06/22/25 13:56 Current Medications Generic Name Dose Route Start Last Admin Trade Name Freq PRN Reason Stop Dose Admin Acetaminophen 650 mg 06/23/25 13:45 06/23/25 14:29 Acetaminophen 325 Mg Tablet PO 650 mg Q6H PRN Administration Mild/Mod Pain Or Temp >/= 101 Cephalexin HCl 500 mg 06/23/25 13:45 06/23/25 14:29 Cephalexin 500 Mg Capsule PO 500 mg Q12H LOAN Administration Protocol Enoxaparin Sodium 40 mg 06/23/25 13:45 06/23/25 13:57 Enoxaparin 40 Mg/0.4 Ml Syringe SUBCUT 40 mg Q24H LOAN Administration Sodium Chloride 1,000 mls @ 50 mls/hr 06/23/25 11:15 06/23/25 13:59 Sodium Chloride 0.9% IV 50 mls/hr .Q20H LOAN Administration Ketorolac Tromethamine 15 mg 06/23/25 11:02 06/23/25 13:57 Ketorolac 30 Mg/Ml Inj IVP 06/28/25 11:01 15 mg Q6H PRN Administration MODERATE PAIN Morphine Sulfate 4 mg 06/23/25 10:30 06/23/25 15:32 Morphine 4 Mg/Ml Sdv 1 Ml IVP 4 mg Q4H PRN Administration SEVERE PAIN PFSH Acute PFSH: Surgical History History of neck surgery History of facelift Social History Smoking and tobacco/nicotine status: never used tobacco/nicotine Alcohol intake: never Substance/Drug Use: never Lives independently: No Household members: family Vitals/I&O/Wt Last Vital Signs Temp 98.9 F 06/23/25 15:51 Pulse 89 06/23/25 15:51 Resp 16 06/23/25 15:51 BP 105/70 06/23/25 17:02 Pulse Ox 96 06/23/25 15:53 O2 Del Method Room Air 06/23/25 15:53 Weight last 48 hrs Weight 122 lb 8 oz Weight 120 lb Physical Exam Narrative: Alert and oriented x 3 Head is normocephalic atraumatic Respirations are intact No evidence of any rashes or infection Patient has decreased sensation in bilateral lower extremities She has 4/5 weakness in plantarflexion dorsiflexion. She cannot lift her legs off the bed. Decreased deep tendon reflexes Data 06/22/25 14:17 06/23/25 14:26 A&P Assessment and plan 1. Lumbar stenosis with neurogenic claudication: Patient's lumbar MRI shows severe stenosis at L2-3, L3-4, L4-5 and L5-S1. This could likely be the cause of her weakness. This would have come on suddenly as she describes her inability to walk is coming on suddenly. She also has stenosis in her cervical spine with a previous cervical fusion. This could be because of the weakness in her right arm. At this point we will try a round of steroids to see if this gives her relief. Also awaiting Dr. Calero's evaluation from neurology to see her opinion. There was concern of possible [place] Parker? syndrome. cervical MRI 1. Prior anterior cervical fusion with interbody spacers extending from C4-C7. Fusion appears intact without complications. 2. C7 anterolisthesis by 5 mm. 3. Severe degenerative disc space narrowing at C3-4 with osteophytosis. 4. C3-4: Severe central and bilateral foraminal stenosis predominately due to osteophytic ridging. 5. Moderate to severe central and foraminal stenosis at C5-6. 6. Moderate foraminal stenosis at C6-7 with a LEFT paracentral disc osteophyte. 7. C7-T1: Severe central and moderate bilateral foraminal stenosis. 8. Mild central and foraminal stenosis at T1-2. 9. Subtle signal changes in the anterior cervical cord at C6-7 may represent early myelomalacia. Lumbar MRI 3. Severe central, bilateral subarticular recess and foraminal stenosis at L2-3 and L3-4. 4. Severe central, subarticular recess and RIGHT foraminal stenosis at L4-5. Moderate LEFT foraminal stenosis. 5. L5-S1: Severe central, bilateral subarticular recess and moderate foraminal stenosis. 6. L4 anterolisthesis by 5.5 mm. PDMP PDMP Reviewed: Not Reviewed Coding Level of Care Code Acute Code for [facility] Fwd Diagnoses Lumbar stenosis with neurogenic claudication M48.062
[2025-06-23] MEDS: methylPREDNISolone sod succ 40 mg/mL INJ 30 MG IVP (17:54)
--- NOTE | 2025-06-23 17:55 | PM.CONSULT ---
Providers/Reason For Consult Consulting Physician/Specialty*: Dr. Calero Reason for Consult*: Patient is too weak to walk and has cervical myelopathy Attending Physician: Tad Bailey Primary Care Provider: Jayden Vaz DO History of Present Illness History of Present Illness Maria Luz Weems is a 85 year old female Review of Systems Narrative: The patient, hospitalized since yesterday, presents with inability to walk. She is complaining of severe bilateral knee and leg pain but says that since the doctor has her pain under control she still cannot walk. Last week she was ?real sick, with vomiting and a night of severe shaking chills. Symptoms of the acute illness began approximately six days ago. After starting to feel better from the illness, woke with severe right knee pain and was able to walk that day despite pain. The next morning, the other leg/knee developed similar severe pain, after which ambulation was not possible. Both knees are swollen as she acknowledges that she has fluid on her knees. Denies falls. Denies urinary incontinence and bowel incontinence; urination without difficulty. Reports longstanding numbness in the feet, possibly extending somewhat higher. Lives with a niece. Pain has been treated with pain medication in the hospital, but inability to walk persists. She had spinal fusion quite a few years ago by Dr. Joaquin Marley in [place]. It was a bad experience for her but she was experiencing severe weakness in her arms and legs prior to surgery and recovered quite a bit. Her hands have been progressively thinner since then. mri lumbar spine 06/23/2025 1. Examination is compromised by motion artifact. 2. Multilevels of severe central, foraminal and subarticular recess stenosis identified. 3. Severe central, bilateral subarticular recess and foraminal stenosis at L2-3 and L3-4. 4. Severe central, subarticular recess and RIGHT foraminal stenosis at L4-5. Moderate LEFT foraminal stenosis. 5. L5-S1: Severe central, bilateral subarticular recess and moderate foraminal stenosis. 6. L4 anterolisthesis by 5.5 mm. 7. Moderate central, subarticular recess and foraminal stenosis at L1-2. 8. No definite acute fractures are identified. There is marrow edema along the endplates of L1, L2 and L3. This may be reactive. MRI cspine N: 1. Prior anterior cervical fusion with interbody spacers extending from C4-C7. Fusion appears intact without complications. 2. C7 anterolisthesis by 5 mm. 3. Severe degenerative disc space narrowing at C3-4 with osteophytosis. 4. C3-4: Severe central and bilateral foraminal stenosis predominately due to osteophytic ridging. 5. Moderate to severe central and foraminal stenosis at C5-6. 6. Moderate foraminal stenosis at C6-7 with a LEFT paracentral disc osteophyte. 7. C7-T1: Severe central and moderate bilateral foraminal stenosis. 8. Mild central and foraminal stenosis at T1-2. 9. Subtle signal changes in the anterior cervical cord at C6-7 may represent early myelomalacia. Dictated By: Jeanne Camacho DO Signed By: Jeanne Camacho DO Signed Date/Time: 06/23/25 Musc: Reports: joint swelling, joint stiffness and muscle weakness; Denies: neck pain or back pain (No more pain in her neck or back than usual.) Neuro: Reports: numbness in extremities (Chronic numbness in her feet), lack of coordination, difficulty walking and other (She says her memory is good); Denies: headache(s), confusion or behavioral changes Medications/Allergies Home Medications ?Medication ?Instructions ?Recorded ?Confirmed ?Last Taken ?Type insulin syringe,safety needle 1 mL #12 ea 04/21/20 06/22/25 Unknown Rx 29 gauge x 1/2 acetaminophen 500 mg tablet 500 mg PO Q6H PRN Pain 06/22/25 06/22/25 06/22/25 History alendronate 70 mg tablet 70 mg PO Q7D 06/22/25 06/22/25 06/13/25 History etodolac 400 mg tablet 400 mg PO BID 06/22/25 06/22/25 Unknown History Allergies Allergy/AdvReac Type Severity Reaction Status Date / Time No Known Allergies Allergy Verified 06/22/25 13:56 Current Medications Generic Name Dose Route Start Last Admin Trade Name Freq PRN Reason Stop Dose Admin Acetaminophen 650 mg 06/23/25 13:45 06/23/25 14:29 Acetaminophen 325 Mg Tablet PO 650 mg Q6H PRN Administration Mild/Mod Pain Or Temp >/= 101 Cephalexin HCl 500 mg 06/23/25 13:45 06/23/25 14:29 Cephalexin 500 Mg Capsule PO 500 mg Q12H LOAN Administration Protocol Enoxaparin Sodium 40 mg 06/23/25 13:45 06/23/25 13:57 Enoxaparin 40 Mg/0.4 Ml Syringe SUBCUT 40 mg Q24H LOAN Administration Sodium Chloride 1,000 mls @ 50 mls/hr 06/23/25 11:15 06/23/25 13:59 Sodium Chloride 0.9% IV 50 mls/hr .Q20H LOAN Administration Ketorolac Tromethamine 15 mg 06/23/25 11:02 06/23/25 13:57 Ketorolac 30 Mg/Ml Inj IVP 06/28/25 11:01 15 mg Q6H PRN Administration MODERATE PAIN Morphine Sulfate 4 mg 06/23/25 10:30 06/23/25 15:32 Morphine 4 Mg/Ml Sdv 1 Ml IVP 4 mg Q4H PRN Administration SEVERE PAIN PFSH Acute PFSH: Surgical History History of neck surgery History of facelift Social History Smoking and tobacco/nicotine status: never used tobacco/nicotine Alcohol intake: never Substance/Drug Use: never Lives independently: No Household members: family Vitals/I&O/Wt Last Vital Signs Temp 98.9 F 06/23/25 15:51 Pulse 89 06/23/25 15:51 Resp 16 06/23/25 15:51 BP 105/70 06/23/25 17:02 Pulse Ox 96 06/23/25 15:53 O2 Del Method Room Air 06/23/25 15:53 06/23/25 06/23/25 06/23/25 06:59 14:59 22:59 Intake Total 120 / 120 Balance 120 / 120 Weight last 48 hrs Weight 122 lb 8 oz Weight 120 lb Physical Exam Narrative: GENERAL: She is very thin, cachectic. MENTAL STATUS: She appears to be above average in intelligence and she remembers recent events, although uncorroborated. I did not do specific memory testing. CRANIAL NERVES: Visual sotelo were full to confrontation, direct and consensual. Extraocular movements were full without nystagmus.. Face was symmetric at rest and with grimace. Hearing was intact to soft spoken voice. MOTOR: She has wasting of the hand muscles on both sides. She has moderately good strength in the proximal muscles of both upper extremities, 4/5. In the lower extremities she was able to give at least 4 out of 5 strength in psoas, hamstrings, quadriceps and the calf muscles. She does not have a foot drop. There is no sign of spasticity and normal tone even though she is extremely thin. SENSATION: She does not perceive vibration in the knees or the ankles. She claims to perceive the pen equally everywhere. COORDINATION: She could lift each foot from the bed briefly. DEEP TENDON REFLEXES: Toes not upgoing. Left knee jerk 1+ right absent ankle jerks bilaterally absent. Upper extremity reflexes 1+ GAIT: Not tested. She says she has not been out of bed except with 1 rehab assistant, nurse. HEENT: She is very thin with wasting of the temporalis muscles. NECK: Not rigid. CHEST: Clear to auscultation. CARDIOVASCULAR: The heart sounds were normal without murmur or gallop. Regular rate and rhythm. EXTREMITIES: Wasting of the hand muscles with chronic hyperextension of the PIP consistent with chronic spinal cord lesion Data 06/22/25 14:17 06/23/25 14:26 A&P Assessment and plan 1. Cervical spondylosis with myelopathy: She has abnormal signal in the cervical spinal cord and I think that is likely chronic. I suspect that her recent flulike illness with multiple episodes of vomiting has triggered recrudescence of her cervical myelopathy. She has bilateral knee effusion and pain in the knees that I think has tipped her from an already frail state to inability to ambulate. I do not think that she has acute spinal cord compression requiring decompression and I am fearful that with the amount of severe stenosis she has in her cervical and lumbar spine that surgery would only make her delicate situation worse. She is cachectic and appears somewhat malnourished. I suggested that she should have her joint problems managed with pain medication and consider short-term rehabilitation situation to get her back on her feet. She was willing to consider that. She is not in favor of having surgery. 2. Bilateral knee effusions: She is a that the swelling in her knees is not usually like this. She has bilateral knee effusions 3. Lumbar stenosis with neurogenic claudication: MRI of her lumbar spine was reviewed. Lumbar and cervical spine images were reviewed and discussed with Dr. Cohn and Dr. Bailey. 4. Unable to walk: Plan physical and Occupational Therapy evaluations and treat incision to a neurorehab or local senior care. I see her vitamin B12 is over 2000. It might not be a bad idea to check thiamine also. Thanks for asking me to see her PDMP PDMP Reviewed: Not Reviewed Coding Level of Care Code Acute Code for [facility] Fwd Diagnoses Cervical spondylosis with myelopathy M47.12 Bilateral knee effusions M25.461; M25.462 Lumbar stenosis with neurogenic claudication M48.062 Unable to walk R26.2
[2025-06-24] VITALS (12 sets, daily range): BP systolic 112–157; BP diastolic 65–78; PULSE 72–84; RESP 16–18; TEMP 36.3–36.9; O2SAT 95–98
[2025-06-24 03:20] LABS: Hematocrit 35.8 % (36-47); Hemoglobin 12.20 g/dL (11.27-16.99); Mean Corpuscular HGB Conc 34.1 g/dL (30-55); Mean Corpuscular Hemoglobin 32.4 pg (27-33); Mean Corpuscular Volume 95.0 fl (85-98); Nucleated Red Blood Cells % 0 %; Platelet Count 208 10^3/cmm (157-399); Red Blood Count 3.77 10^6/uL (3.85-5.65); White Blood Count 13.08 10^3/uL (3.29-11.43)
[2025-06-24 03:51] LABS: Alanine Aminotransferase 7 U/L (0-33); Albumin Level 2.9 g/dL (3.5-5.2); Alkaline Phosphatase 124 U/L (35-105); Anion Gap 17.8 (5-19); Aspartate Amino Transferase 11 U/L (0-32); Blood Urea Nitrogen 26 mg/dL (8-23); Calcium 9.1 mg/dL (8.5-10.5); Carbon Dioxide 21 mmol/L (22-29); Chloride 101 mmol/L (98-107); Creatinine Clr Calc Pharmacy 45.2843; Globulin 3.3 g/dL (1.3-4.6); Glucose 165 mg/dL (65-115); Osmolality Calculated 288 mOsm/kg (285-295); Potassium 4.8 mmol/L (3.5-5.1); Sodium 135 mmol/L (136-145); Total Protein 6.2 g/dL (6.6-8.7)
[2025-06-24] MEDS: methylPREDNISolone sod succ 40 mg/mL INJ 30 MG IVP ×2 (04:57→17:52)
--- NOTE | 2025-06-24 08:48 | P.PN_ITS ---
Subjective 2 Subjective: Patient seems more comfortable today. Pain is controlled. Appreciate Dr. Calero's note. At this point discussed with her we will just continue to monitor this conservatively likely go to a rehab facility and follow-up in an outpatient manner. Vitals/I&O/Wt Last Vital Signs Temp 97.5 F L 06/24/25 07:44 Pulse 73 06/24/25 07:44 Resp 16 06/24/25 07:44 BP 114/77 06/24/25 07:44 Pulse Ox 97 06/24/25 07:44 O2 Del Method Room Air 06/24/25 07:44 06/23/25 06/24/25 06/24/25 22:59 06:59 14:59 Intake Total 120 / 120 Output Total 300 / 300 Balance 120 / 120 -300 / -180 Weight last 48 hrs Weight 116 lb Weight 122 lb 8 oz Weight 120 lb Physical Exam 2 Narrative: Currently getting evaluated by physical therapy Data 06/24/25 03:03 06/24/25 03:03 A&P Assessment and plan 1. Lumbar stenosis with neurogenic claudication: Will follow-up after she does some time in rehab follow-up in outpatient manner. PDMP PDMP Reviewed: Not Reviewed Attestations 2 Medical Necessity Statement*: Per primary service Coding Level of Care Code Acute Code for [facility] Diagnoses Lumbar stenosis with neurogenic claudication M48.062
--- NOTE | 2025-06-24 10:09 | PC.CHAP ---
Pastoral Care Encounter/Spiritual Assessment Type of Contact [] Declined asphalt roller person visit [] Patient/Family/Request visit [] Outpatient visit [] Follow-up visit [] Physician referral [] Code/Alert [x] Routine visit [] Staff referral [] Actively dying [] Patient sleeping [] Family support [] [] Out of room [] Palliative care [] [] Receiving care in room [] Pre-surgical visit [] Trauma [] Long length of stay [] ICU visit [] Other: Relational/Emotional Strength [x] Patient feels connected with others/family/visitors/staff [] Distress [] Loneliness/isolation [] Abandonment Spirituality of Patient [x] Person of Rosio [] Attends Restoration of their Rosio [x] Believes in Prayer [] Reads Bible or Lutheran materials [] There are Spiritual issues to be addressed Canoe Inspector Interventions [x] Prayer [x] Active listening [] Non-anxious presence [x] Spiritual/emotional support [] Crisis/trauma care [] Spiritual counseling [] Bereavement support [] Provided bereavement packet [] Provided Bible/devotional materials [] Provided toy/stuffed animal, coloring book to patient or family member [] Provided Communion [] Anointing/[place] [] Salvation [x] Completed spiritual assessment [] Other: Impact on Illness or Injury [] Angry [] Fearful [] Anxious [] Often cries [] Exhaustion [] Unable to work [] Unable to attend latter day [] Unable to walk/stand [] Unable to read [] Unable to drive [] Unable to eat/drink [] Unable to sleep [] Unable to be with family [] Patient intubated [] Other: Summary Time spent with patient 5 min
--- NOTE | 2025-06-24 10:49 | P.PN_ITS ---
Vitals/I&O/Wt Last Vital Signs Temp 97.5 F L 06/24/25 07:44 Pulse 73 06/24/25 07:44 Resp 16 06/24/25 07:44 BP 114/77 06/24/25 07:44 Pulse Ox 97 06/24/25 07:44 O2 Del Method Room Air 06/24/25 07:44 06/23/25 06/24/25 06/24/25 22:59 06:59 14:59 Intake Total 120 / 120 60 / 60 Output Total 300 / 300 Balance 120 / 120 -300 / -180 60 / 60 Weight last 48 hrs Weight 52.617 kg Weight 55.565 kg Weight 54.431 kg Physical Exam 2 Const: COMMON NORMALS: patient oriented x3 and alert GENERAL APPEARANCE: c ooperative ORIENTATION/CONSCIOUSNESS: Yes awake HENMT: COMMON NORMALS: oropharynx normal Neck/C-Spine: COMMON NORMALS: no JVD Resp: COMMON NORMALS: normal respiratory effort and clear to auscultation bilaterally AUSCULTATION: clear to auscultation bilaterally Cardio: COMMON NORMALS: no JVD, regular rhythm, S1 normal heart sound present, S2 normal heart sound present and No murmurs present (Cardio) RHYTHM: regular rhythm HEART SOUNDS: S1 normal heart sound present and S2 normal heart sound present GI: COMMON NORMALS: Normal to inspection, nondistended, normoactive bowel sounds present, Soft to palpation and non-tender PALPATION: Yes Soft to palpation Extremity: COMMON NORMALS: no joint enlargement and no pedal edema N ARRATIVE EXTREMITY EXAM: Minimal induration without notable redness or swelling of right hand. Neuro: COMMON NORMALS: patient oriented x3 SENSORIUM/ORIENTATION: Yes alert OTHER: Mild weakness of upper extremities. Moderate-severe weakness of lower extremities with improvement. Able to lift both legs off the bed and hold. Sensation is intact. Skin: COMMON NORMALS: no rashes or lesions noted GENERAL SKIN EXAM: no rashes or lesions noted Data 06/24/25 03:03 06/24/25 03:03 A&P Assessment and plan 1. Unable to walk: Reviewed MRI C-spine and L-spine, reviewed orthopedic and neurology consultation. Discussed with neurologist, spine surgeon. Discussed with physical therapy, nursing, piano case maker. She is feeling better today. She is able to lift both legs off the bed. She was able to ambulate with PT 60 feet. Significant improvement in symptoms. Will add oral pain medications with acetaminophen, give ibuprofen, try to wean off Toradol. Continues on IV steroids for today. Monitor for risk of encephalopathy, hypertension, gastritis, hyperglycemia. Tomorrow consider switching to oral steroid taper. Further consideration of discharge disposition but likely should be able to return home with home health given significant improvement. Alternatively SNF considered with case management. After discharge to spine surgery will follow-up with her and consider follow-up with neurology in office for further assessment of chronic neuropathy. Reviewed magnesium, B12, TSH, unremarkable. Sodium improved up to 135. DC IV fluid. Follow-up for reassessment of bilateral knee arthritis with effusions. 2. Cervical spinal cord compression: Cervical and lumbar spine stenosis as above. 3. Neuroforaminal stenosis of cervical spine: As above 4. Neuroforaminal stenosis of lumbar spine: As above 5. Hyponatremia: Unclear chronicity. Possibly chronic. Improving. Sodium reviewed, up to 135. DC IV fluid. Possibly chronic hyponatremia. She did have about a weeks worth of illness where she was feeling some nausea, possibly some hypovolemic hyponatremia. Regular diet. Monitor for risk of overly rapid sodium rise. 6. Leukocytosis: Reviewed CBC, leukocytosis improving. May anticipate additional increase due to corticosteroids. Possibly after recent cellulitis of right hand. This appears to be mostly resolving although still with leukocytosis and some mild induration of the dorsal surface of the right hand. Will give cephalexin for now. Reassess. 7. Cholestasis: Reviewed gallbladder ultrasound, normal. Normalized T. bili. Noted improved cholestasis with hydration. 8. Multiple thyroid nodules: Incidentally noted on CT without recommended follow-up. Plan: Bilateral leg pain : With radiculopathy as well as bilateral knee arthritis with effusions. As above. Right hand erythema with prior swelling : Right hand swelling over a couple of days (now resolved) with persistent erythema. 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 Appears to be possibly improving/resolving cellulitis. Will give cephalexin for now with leukocytosis. Reassess blood counts, right hand symptoms. Recent systemic illness with chills and abdominal discomfort (preceding weakness) : Patient reports an acute illness just prior to onset of weakness, with severe chills and abdominal discomfort (no diarrhea). She later reported having some episodes of vomiting. No recurrence. Hyponatremia improving. History of prior cervical spine surgery : Neck surgery years ago; current CT cervical spine shows multilevel spondylosis with potential significant central stenosis at C3?C4, uncovertebral spurring with possible nerve root compromise, and solid interbody fusion from C4?C7. Former tobacco use : Quit smoking decades ago; no current tobacco use. PDMP PDMP Reviewed: Not Reviewed Attestations 2 Medical Necessity Statement*: Continue hospitalization for assessment management of inability to walk which is improving with IV corticosteroid treatment with significant spinal stenosis cervical and lumbar spine, hyponatremia after recent illness with vomiting, dehydration, bilateral knee arthritis with effusions. Post discharge planning and arrangements. and High MDM includes amount and/or complexity of data reviewed/ordered [ previous or external records, resulted lab(s)/test(s), ordered lab(s)/test(s) and other healthcare professional discussion] and described risk of complication, morbidity or mortality of management as documented Diagnoses Unable to walk R26.2 Cervical spinal cord compression G95.20 Neuroforaminal stenosis of cervical spine M48.02 Neuroforaminal stenosis of lumbar spine M48.061 Hyponatremia E87.1 Leukocytosis D72.829 Cholestasis K83.1 Multiple thyroid nodules E04.2
--- NOTE | 2025-06-24 14:52 | PC.NURSE ---
Dr. Bailey gave verbal orders to discontinue Toradol 15 mg Q6H PRN and give patient Ibuprofen 600 mg Q8H PRN.
[2025-06-25] VITALS (10 sets, daily range): BP systolic 138–160; BP diastolic 80–96; PULSE 65–96; RESP 13–16; TEMP 36.4–36.9; O2SAT 90–99
[2025-06-25 03:47] LABS: Hematocrit 34.2 % (36-47); Hemoglobin 11.30 g/dL (11.27-16.99); Mean Corpuscular HGB Conc 33.0 g/dL (30-55); Mean Corpuscular Hemoglobin 31.5 pg (27-33); Mean Corpuscular Volume 95.3 fl (85-98); Nucleated Red Blood Cells % 0 %; Platelet Count 249 10^3/cmm (157-399); Red Blood Count 3.59 10^6/uL (3.85-5.65); White Blood Count 14.86 10^3/uL (3.29-11.43)
[2025-06-25 04:17] LABS: Alanine Aminotransferase 28 U/L (0-33); Albumin Level 3.0 g/dL (3.5-5.2); Alkaline Phosphatase 162 U/L (35-105); Anion Gap 18.0 (5-19); Aspartate Amino Transferase 80 U/L (0-32); Blood Urea Nitrogen 41 mg/dL (8-23); Calcium 9.6 mg/dL (8.5-10.5); Carbon Dioxide 19 mmol/L (22-29); Chloride 101 mmol/L (98-107); Creatinine Clr Calc Pharmacy 39.3410; Globulin 3.3 g/dL (1.3-4.6); Glucose 181 mg/dL (65-115); Osmolality Calculated 291 mOsm/kg (285-295); Potassium 5.0 mmol/L (3.5-5.1); Sodium 133 mmol/L (136-145); Total Protein 6.3 g/dL (6.6-8.7)
[2025-06-25] MEDS: methylPREDNISolone sod succ 40 mg/mL INJ 30 MG IVP (05:53)
--- NOTE | 2025-06-25 09:38 | P.PN_ITS ---
Subjective 2 Subjective: Patient is doing much better. She did ambulate plans to go home with home health. Vitals/I&O/Wt Last Vital Signs Temp 97.6 F 06/25/25 07:28 Pulse 96 06/25/25 07:28 Resp 16 06/25/25 07:28 BP 138/96 06/25/25 07:28 Pulse Ox 90 06/25/25 07:28 O2 Del Method Room Air 06/25/25 07:28 06/24/25 06/25/25 06/25/25 22:59 06:59 14:59 Intake Total 1240 / 1540 740 / 2280 Output Total 100 / 500 Balance 1140 / 1040 740 / 1780 Weight last 48 hrs Weight 116 lb Weight 116 lb Weight 122 lb 8 oz Physical Exam 2 Narrative: Legs have improved strength. Able lift her legs off the bed. Sitting comfortably in the bed. Data 06/25/25 03:09 06/25/25 03:09 A&P Assessment and plan 1. Lumbar stenosis with neurogenic claudication: Patient is improved significantly. Will have her follow-up in the clinic in an outpatient basis. PDMP PDMP Reviewed: Not Reviewed Attestations 2 Medical Necessity Statement*: Per primary service Coding Level of Care Code Acute Code for [facility] Fwd Diagnoses Lumbar stenosis with neurogenic claudication M48.062
--- NOTE | 2025-06-25 12:47 | PC.NURSE ---
Patient stated going home and did not want the belly shot . So lovenox shot was refused.
--- NOTE | 2025-06-25 16:27 | P.DS_ITS ---
Discharge Providers Date of Admission: 06/23/25 13:02 Date of Discharge: June 25, 2025 Attending Provider at Admission: Tad Bailey Attending Provider at Discharge: Damon Castellanos MD Primary Care Provider: Jayden Vaz DO Diagnoses at Discharge Discharge Diagnosis 1. Lumbar stenosis with neurogenic claudication: Details from hospital stay: Much improved with steroids and physical therapy patient is able to walk and desires to go home. She is discharged at this time 2. Bilateral knee effusions: Details from hospital stay: This is much improved with steroids. I do not find signs of infection. 3. Neuroforaminal stenosis of lumbar spine: Details from hospital stay: As above 4. Neuroforaminal stenosis of cervical spine: Details from hospital stay: As above 5. Leukocytosis: Details from hospital stay: Patient's white count was already elevated at time of admission on 06/22/2025. I do not think she was on steroids at that time but I am not certain. White count remains elevated to 13 on June 24 and June 25 neutrophil percent elevated. Urine was not tested but she is asymptomatic and skin is not obviously infected. She is already on antibiotics with Keflex and will finish 3 more days. She is already on steroids and will finish 3 more days Since blood cultures and urine were not done and she is already on antibiotics without symptoms I am going to forego testing them now. I like her to have a CBC and a CHEM panel next week after she will have been off Decadron for about 4 days 6. Cholestasis: Details from hospital stay: Bilirubin normalized right upper quadrant exam benign 7. Cervical spinal stenosis: Details from hospital stay: As above 8. Unable to walk: Details from hospital stay: Resolved patient is walking fairly well now Reason for Visit Reason for Visit: Can't walk painfull to stand R hand was swollen Brief History: Maria Luz Weems is a 85 year old woman with a history of prior neck surgery presenting with several days of progressive weakness and difficulty getting up and walking. Reports bilateral leg pain described as painful in most of the legs, with pain shooting down the backs of both legs. States she cannot walk and has struggled to get up even with use of a walker for a couple of days prior to arrival. Also notes her arms feel weak. Denies urinary or fecal incontinence. Reports right hand swelling over the past couple of days that has resolved, with some persistent redness (erythema). Describes a recent acute illness just before the weakness began, characterized by feeling very sick with severe chills and abdominal discomfort; denies diarrhea and is unsure about fever. Denies chest pain, shortness of breath, orthopnea, or leg swelling. Reports long-standing numbness in the feet (states she has had neuropathy for a long time). Denies falls. Had an episode of feeling unwell and with some nausea for about a week prior to current symptoms. States she was exercising and walking prior to this episode without major issues. In the emergency department, she received pain medication that improved comfort. Lives with her niece, who assists her. Hospital Course Hospital Course Patient had acute illness with nausea vomiting for 4 days prior to coming to the hospital. She denies history of cholecystitis and states her gallbladder is still intact. Her labs were notable for alk phos 141 and bilirubin 1.4 but on further testing alk phos 162 bilirubin 0.3 AST naya to 80. The patient reports that she had some dysuria preceding admission but that is resolved she also reports that she had right hand swelling and erythema also resolved. On exam today no source of infection or inflammation found Physical Exam Narrative: General well-developed thin female in no acute cardiopulmonary stress CV regular rate and rhythm Lungs clear to auscultation bilaterally Abdomen positive bowel tones soft no epigastric tenderness no right upper quadrant tenderness No suprapubic tenderness no flank tenderness Calves no tenderness cords pretibial edema Knees she does not need bilaterally and there is small effusion but no erythema minimal warmth and no tenderness. Back she has normal range of motion of her neck for age and no increased warmth or redness or tenderness to suggest paraspinous abscess over the neck or thoracic or lumbar spine is examined at bedside Skin warm and dry no erythema over the either hand no swelling Discharge Data Studies Completed and Pending Completed Studies During Hospitalization Category Date Time Status CT cervical spin wo con* [id number] Stat Cat Scan 06/22/25 14:[address] head wo con* [id number] Stat Cat Scan 06/22/25 14:[address] lumbar spine wo con* [id number] Stat Cat Scan 06/22/25 14:51 Completed XR hand RT min 3V* [id number] Stat Exams 06/22/25 13:50 Completed MR cervical spin wo con* [id number] Stat MRI 06/23/25 10:24 Completed MR lumbar spine wo con* [id number] Stat MRI 06/23/25 10:24 Completed US gall bladder [id number] Routine Ultrasound 06/23/25 13:45 Completed Pending at discharge Category Date Time Status Complete Blood Count w/Auto AM LABS Lab 06/26/25 04:00 Ordered Comprehensive Metabolic Panel AM LABS Lab 06/26/25 04:00 Ordered Vitamin B1 (Thiamine),Blood Routine Lab 06/24/25 13:04 Received Radiology Impressions Hand X-Ray 06/22/25 13:50 Impression: 1. 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 2. 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 Cervical Spine CT 06/22/25 14:51 IMPRESSION: 1. Multilevel cervical spondylosis as detailed above with potentially significant central canal stenosis at C3-C4 where a disc osteophyte complex narrows the thecal sac to 6.1 mm and likely results in some cord compromise. 2. Additional neural impingement with hypertrophic endplate changes uncovertebral spurring causing potential bilateral C4 root compromise, and bony foraminal stenosis potentially affecting the bilateral C6 and C7 nerve roots. 3. Solid interbody fusion from C4 through C7 4. Facet arthropathy resulting in 4.1 mm of degenerative anterolisthesis at C7-T1. Lateral flexion and extension views could be obtained to assess for instability at this level if clinically indicated. 5. 10 mm left and 11 mm right thyroid low-attenuation nodules. No follow-up is recommended. COMMENTS: Consistent with the [employer]'s Incidental Findings Committee white paper (J Am Jamie Radiol 2015): In patients aged 35 years and older with an incidental thyroid nodule equal to or greater than 1.[address], MRI or extrathyroidal US, further evaluation with dedicated thyroid US is recommended for patients with normal life expectancy and without comorbidities. For smaller nodules without suspicious features, no further evaluation or follow up is recommended. Head CT 06/22/25 14:51 IMPRESSION: Age-related parenchymal volume loss without evidence of acute intracranial pathology. Lumbar Spine CT 06/22/25 14:51 IMPRESSION: No acute lumbar spine fracture. Multilevel degenerative disc disease with neural foraminal narrowing. Severe left neural foraminal narrowing at L1-L2, severe left and moderate right L2-L3, severe bilateral L3-L4, L4-L5 and L5-S1. Mild to moderate spinal canal stenosis at L3-L4, moderate at L4-L5 and L5-S1. Cervical Spine MRI 06/23/25 10:24 IMPRESSION: 1. Prior anterior cervical fusion with interbody spacers extending from C4-C7. Fusion appears intact without complications. 2. C7 anterolisthesis by 5 mm. 3. Severe degenerative disc space narrowing at C3-4 with osteophytosis. 4. C3-4: Severe central and bilateral foraminal stenosis predominately due to osteophytic ridging. 5. Moderate to severe central and foraminal stenosis at C5-6. 6. Moderate foraminal stenosis at C6-7 with a LEFT paracentral disc osteophyte. 7. C7-T1: Severe central and moderate bilateral foraminal stenosis. 8. Mild central and foraminal stenosis at T1-2. 9. Subtle signal changes in the anterior cervical cord at C6-7 may represent early myelomalacia. Lumbar Spine MRI 06/23/25 10:24 IMPRESSION: 1. Examination is compromised by motion artifact. 2. Multilevels of severe central, foraminal and subarticular recess stenosis identified. 3. Severe central, bilateral subarticular recess and foraminal stenosis at L2-3 and L3-4. 4. Severe central, subarticular recess and RIGHT foraminal stenosis at L4-5. Moderate LEFT foraminal stenosis. 5. L5-S1: Severe central, bilateral subarticular recess and moderate foraminal stenosis. 6. L4 anterolisthesis by 5.5 mm. 7. Moderate central, subarticular recess and foraminal stenosis at L1-2. 8. No definite acute fractures are identified. There is marrow edema along the endplates of L1, L2 and L3. This may be reactive. Gallbladder Ultrasound 06/23/25 13:45 IMPRESSION: Normal right upper quadrant ultrasound. Laboratory Results WBC 14.86 10^3/uL (3.29-11.43) H 06/25/25 03:09 RBC 3.59 10^6/uL (3.85-5.65) L 06/25/25 03:09 Hgb 11.30 g/dL (11.27-16.99) 06/25/25 03:09 Hct 34.2 % (36-47) L 06/25/25 03:09 MCV 95.3 fl (85-98) 06/25/25 03:09 MCH 31.5 pg (27-33) 06/25/25 03:09 MCHC 33.0 g/dL (30-55) 06/25/25 03:09 RDW 12.5 % (12.1-15.1) 06/25/25 03:09 Plt Count 249 10^3/cmm (157-399) 06/25/25 03:09 MPV 10.5 fL (7.4-10.4) H 06/25/25 03:09 Neut % (Auto) 91.9 % 06/25/25 03:09 Lymph % (Auto) 3.5 % 06/25/25 03:09 [place] % (Auto) 3.5 % 06/25/25 03:09 Eos % (Auto) 0.0 % 06/25/25 03:09 Baso % (Auto) 0.1 % 06/25/25 03:09 Neut # (Auto) 13.65 10^3/uL (1.8-7.7) H 06/25/25 03:09 Lymph # (Auto) 0.5 10^3/uL (0.8-4.8) L 06/25/25 03:09 [place] # (Auto) 0.5 10^3/uL (0.2-0.9) 06/25/25 03:09 Eos # (Auto) 0.0 10^3/uL (0.0-0.8) 06/25/25 03:09 Baso # (Auto) 0.0 10^3/uL (0.0-0.1) 06/25/25 03:09 Nucleated RBC % (auto) 0 % 06/25/25 03:09 Nucleated RBCs # 0.0 /100WBC 06/25/25 03:09 Sodium 133 mmol/L (136-145) L 06/25/25 03:09 Potassium 5.0 mmol/L (3.5-5.1) 06/25/25 03:09 Chloride 101 mmol/L (98-107) 06/25/25 03:09 Carbon Dioxide 19 mmol/L (22-29) L 06/25/25 03:09 Anion Gap 18.0 (5-19) 06/25/25 03:09 BUN 41 mg/dL (8-23) H 06/25/25 03:09 Creatinine 0.9 mg/dL (0.5-0.9) 06/25/25 03:09 GFR Calculation Not Reportable 06/25/25 03:09 Glucose 181 mg/dL (65-115) H 06/25/25 03:09 Calculated Osmolality 291 mOsm/kg (285-295) 06/25/25 03:09 Calcium 9.6 mg/dL (8.5-10.5) 06/25/25 03:09 Magnesium 2.3 mg/dL (1.7-2.3) 06/23/25 14:26 Total Bilirubin 0.3 mg/dL (0.15-1.2) 06/25/25 03:09 AST 80 U/L (0-32) H 06/25/25 03:09 ALT 28 U/L (0-33) 06/25/25 03:09 Alkaline Phosphatase 162 U/L (35-105) H 06/25/25 03:09 Total Protein 6.3 g/dL (6.6-8.7) L 06/25/25 03:09 Albumin 3.0 g/dL (3.5-5.2) L 06/25/25 03:09 Globulin 3.3 g/dL (1.3-4.6) 06/25/25 03:09 Vitamin B12 > 2000 pg/mL (232-1245) H 06/23/25 14:26 TSH 0.80 uIU/mL (0.27-4.20) 06/23/25 14:26 Vitals Last Vital Signs Temp 97.8 F 06/25/25 16:00 Pulse 85 06/25/25 16:00 Resp 15 06/25/25 16:00 BP 149/96 06/25/25 16:00 Pulse Ox 90 06/25/25 16:00 O2 Del Method Room Air 06/25/25 16:00 Discharge Plan Discharge Patient Disposition: Home Condition: Stable Prescriptions: New cephalexin 500 mg Capsule 500 mg PO BID Qty: 6 0RF dexamethasone 4 mg tablet 4 mg PO DAILY Qty: 3 0RF Continued (DME) insulin syringe,safety needle 1 mL 29 gauge x 1/2 syringe See Rx Instructions .ROUTE .MEDSUPPLY Qty: 12 0RF Rx Instructions: once monthly with vitamin b12 alendronate 70 mg tablet 70 mg PO Q7D etodolac 400 mg tablet 400 mg PO BID acetaminophen 500 mg Tablet 500 mg PO Q6H PRN (Reason: Pain) Discharge Order = DC NOW: Discharge Order (Routine); Ordered 06/25/25 Ordered By: Damon Castellanos Other Ambulatory Orders: Complete Blood Count w/Auto (Routine) Timeframe: 1 Week Location: Determined by Patient Ordered By: Damon Castellanos Referrals: Jesus Plascencia DO [Physician, Orthopedics] - 2 weeks Referral Note: We have notified your physician's clinic of the need for a follow-up appointment to be scheduled. If you have not heard from them within the next 2 business days, please call them directly. Jayden Vaz DO [Primary Care Provider] - 1 week Referral Note: Please call your primary care provider Friday to make a hospital discharge follow up in 1 week. Discharge Diet: Regular Discharge Activity: Increase activity as tolerated Patient Instructions: Cephalexin (By mouth) (Bio-Cef, Keflex), Dexamethasone (By mouth), Leukocytosis (DC), Swollen Knee Joint (ED), Opioid Safety, Patient Portal & Juan F Instructions Activity Restrictions/Additional Instructions: Follow-up orthopedic spine in 2 weeks. Return if you have fevers chills abdominal pain nausea vomiting to suggest your gallbladder is acting up Return if you have burning or blood with your urination or frequency of urination Your white count is elevated and not well explained by any symptoms of infection such as your urine, lungs or gallbladder. The white count could be elevated due to your steroids and so should be rechecked in a week with your primary care physician Discharge Attestations Time Spent in Discharge Care*: greater than 30 min Time Spent in Smoking Cessation: Patient is not a smoker Quality Metrics Clinical Quality Measures [ No reported AMI, CVA or VTE this stay] Coding Level of Care Code 53569 Diagnoses Lumbar stenosis with neurogenic claudication M48.062 Bilateral knee effusions M25.461; M25.462 Neuroforaminal stenosis of lumbar spine M48.061 Neuroforaminal stenosis of cervical spine M48.02 Leukocytosis D72.829 Cholestasis K83.1 Cervical spinal stenosis M48.02 Unable to walk R26.2 Time Spent (min) 35
== END 2025-06-25 18:00 | disposition home or self-care (01) ==
LOC: ER 06-23 09:11 → MEDSURG 06-23 13:03
PROVIDERS: Admitting Provider Internal Medicine; Emergency Provider Family Medicine; PCP Family Medicine; Visit Provider Internal Medicine
DX: M48.062 Spinal stenosis, lumbar region with neurogenic claudication (principal); M25.461 Effusion, right knee; M25.462 Effusion, left knee; M48.061 Spinal stenosis, lumbar region without neurogenic claudication; M48.02 Spinal stenosis, cervical region; D72.829 Elevated white blood cell count, unspecified; R26.2 Difficulty in walking, not elsewhere classified; Z79.4 Long term (current) use of insulin; K83.1 Obstruction of bile duct; E04.2 Nontoxic multinodular goiter; E87.1 Hypo-osmolality and hyponatremia; G95.20 Unspecified cord compression
CPT/HCPCS: 36415; 70450; 72125; 72131; 72141; 72148; 73130; 76705; 80053; 82607; 83735; 84295; 84425; 84443; 85025; 94664; 96361; 96372; 96374; 96375; 96376; 97110; 97116; 97161; 97165; 99285; G0378; J1171; J1650; J1885; J2270; J2919; J7030; J9999

== ENCOUNTER → 2025-07-07 13:28 | Outpatient (BNVA) | payer MEDICARE, SELFPAY | PROVIDERS: PCP Family Medicine; Visit Provider Orthopaedic Surgery | DX: M48.062 Spinal stenosis, lumbar region with neurogenic claudication (principal); M47.12 Other spondylosis with myelopathy, cervical region | CPT/HCPCS: 72050; 72110; 99203 ==

== ENCOUNTER → 2025-09-15 15:08 | Outpatient (BNVA) | payer MEDICARE, SELFPAY | PROVIDERS: PCP Family Medicine; Visit Provider Orthopaedic Surgery | DX: M48.062 Spinal stenosis, lumbar region with neurogenic claudication (principal) | CPT/HCPCS: 72110; 99213 ==